=== PATIENT | female | born 1945 | race Caucasian/White ===

== ENCOUNTER 2016-09-15 19:59 | Inpatient (IN) | payer MEDICARE ==
[~2016-09-15] VITALS: Ht 165.1 cm; Wt 44.9 kg
[2016-09-16 01:30] VITALS: BP 117/62
[2016-09-16] MEDS ORDERED: ENALAPRIL MALEA10 MG ORAL (02:14)
[2016-09-16] MEDS ORDERED: FIORINAL WITH1 EACH PO (02:14)
[2016-09-16] MEDS ORDERED: Digoxin 0.125mg tab ORAL ONE (02:30)
[2016-09-16] MEDS ORDERED: Zolpidem 5mg tab ORAL PRN (03:30)
[2016-09-16] MEDS ORDERED: Norco 5mg/325mg tab ORAL PRN (03:30)
[2016-09-16 04:00] VITALS: BP 117/62
[2016-09-16] MEDS ORDERED: Enoxaparin 40mg Inj SUBQ ONE ×2 (04:00→08:00)
[2016-09-16 05:00] LABS: EOSINOPHILS % (AUTO) 0.2 % (0.0-3.0); LYMPHOCYTES % (AUTO) 15.4 % (20.0-45.0); MEAN CORPUSCULAR HEMOGLOBIN 32.6 PG (27.0-31.0); MEAN CORPUSCULAR HGB CONC 34.3 G/DL (32.0-36.0); MEAN CORPUSCULAR VOLUME 95 FL (80-99); MEAN PLATELET VOLUME 8.9 FL (6.5-10.1); MONOCYTES % (AUTO) 6.9 % (1.0-10.0); NEUTROPHILS % (AUTO) 76.5 % (45.0-75.0); PLATELET COUNT 140 K/UL (150-450); RED BLOOD COUNT 3.97 M/UL (4.20-5.40); RED CELL DISTRIBUTION WIDTH 10.6 % (11.6-14.8); WHITE BLOOD COUNT 4.1 K/UL (4.8-10.8)
[2016-09-16 06:47] LABS: TROPONIN I < 0.30 ng/mL (<=0.30)
[2016-09-16 07:34] LABS: ANION GAP 12 (5-15); CARBON DIOXIDE 21 mEQ/L (20-30); CHLORIDE 105 mEQ/L (98-107); CREATININE 0.4 mg/dL (0.5-0.9); GLOMERULAR FILTRATION RATE > 60 mL/min (>60); HEMOLYSIS 8; POTASSIUM 4.3 mEQ/L (3.4-4.9); SODIUM 138 mEQ/L (135-145)
[2016-09-16 08:07] LABS: ALANINE AMINOTRANSFERASE 10 U/L (3-33); ALBUMIN/GLOBULIN RATIO 1.6 (1.0-2.7); ANION GAP 12 (5-15); ASPARTATE AMINO TRANSFERASE 17 U/L (5-40); CALCIUM 8.9 mg/dL (8.6-10.2); CARBON DIOXIDE 21 mEQ/L (20-30); CHLORIDE 105 mEQ/L (98-107); CREATININE 0.5 mg/dL (0.5-0.9); GLOMERULAR FILTRATION RATE > 60 mL/min (>60); HEMOLYSIS 6; POTASSIUM 4.2 mEQ/L (3.4-4.9); SODIUM 138 mEQ/L (135-145); TOTAL PROTEIN 6.2 g/dL (6.6-8.7)
[2016-09-16 08:18] LABS: THYROID STIMULATING HORMONE 0.774 uIU/mL (0.300-4.500)
[2016-09-16 08:27] VITALS: BP_SYST 106; BP_SYST 97; BP_DIAS 60; BP_DIAS 64
[2016-09-16 08:50] LABS: PROTHROMBIN TIME 10.1 SEC (9.30-11.50)
[2016-09-16] MEDS ORDERED: Metoprolol Tartrate 50mg tab ORAL SCH (09:00)
[2016-09-16] MEDS ORDERED: Heparin 5000 units/ml inj SUBQ SCH (09:00)
[2016-09-16] MEDS: Metoprolol Tartrate 50mg tab ORAL SCH ×2 (09:00→18:36)
[2016-09-16] MEDS: Digoxin 0.125mg tab ORAL SCH (09:01)
[2016-09-16 10:31] LABS: TROPONIN I < 0.30 ng/mL (<=0.30)
--- NOTE | 2016-09-16 10:44 | History & Physical ---
History and Physical History & Physicial Dictated for Int Med-Dr Donahue no. [id number]. ADITI VELA Sep 16, 2016 10:44
[2016-09-16 11:47] VITALS: BP 119/70
--- NOTE | 2016-09-16 12:00 | History and Physical Report ---
DATE OF ADMISSION: 09/16/2016 CHIEF COMPLAINT: The patient is a 71-year-old white female, presents with chief complaint of "irregular heartbeat." HISTORY OF PRESENT ILLNESS: The patient states she was taking a nap this afternoon about 3 p.m. The patient awoke feeling that her heartbeat was "irregular." The patient has a history of irregular heartbeat, however, she has never been worked up for this. The patient initially presented to [facility] Emergency Room. The patient was found to be in atrial fibrillation with rapid ventricular rate in the 130s. The patient received metoprolol in the emergency room at [place]. The patient is transferred to [facility] for insurance purposes. The patient presents with a chief complaint of atrial fibrillation with rapid ventricular rate. REVIEW OF SYSTEMS: Constitutional: The patient denies weight loss or weight gain. The patient denies fevers or chills. HEENT: The patient denies ear or throat pain. The patient has headache. Cardiovascular: The patient denies chest pain. The patient complains of palpitations. Abdomen: The patient denies nausea, vomiting, diarrhea, or constipation. Genitourinary: The patient denies dysuria or increased frequency of urination. Neuromuscular: The patient denies seizures or generalized weakness. PAST MEDICAL HISTORY: Significant for: 1. Off and on atrial fibrillation for the past 30 years. The patient states this occurs approximately once per year. 2. Hypertension, however, the patient is not on any antihypertensive medication. 3. Thyroid nodule, status post needle biopsy, which was benign. PAST SURGICAL HISTORY: The patient denies. CURRENT MEDICATIONS: 1. Enalapril 10 mg one tablet p.o. p.r.n. systolic greater than 150 or diastolic greater than 100. 2. with codeine one tablet p.o. p.r.n. headache. ALLERGIES: Vicodin and Phenergan. SOCIAL HISTORY: The patient is and is retired. The patient denies tobacco or alcohol use. PHYSICAL EXAMINATION: VITAL SIGNS: Temperature 98.6, respirations 18, pulse 91 to 125, and blood pressure 117/62. GENERAL: The patient is well-developed, well-nourished, thin-appearing white female, in no apparent distress. HEENT: Eyes, pupils are equal and responsive to light and accommodation. Extraocular movements are intact. NECK: Supple without lymphadenopathy. CHEST: Lungs are clear to auscultation bilaterally without wheezes or rales. CARDIOVASCULAR: Irregular rhythm. Irregular rate. S1 and S2 are normal without murmurs, rubs, or gallops. ABDOMEN: Soft, nontender, and nondistended. Positive bowel sounds. No evidence of hepatosplenomegaly. Currently, no rebound or guarding noted. EXTREMITIES: Negative for clubbing, cyanosis, or edema. RECTAL/GENITAL: Refused. NEUROLOGIC: Cranial nerves II through XII are grossly intact. No focal deficits. Motor strength is 5/5 bilaterally. Deep tendon reflexes are 2+ bilaterally. LABORATORY DATA: Laboratory studies from [place] WBC 3.3, hemoglobin 14.4, hematocrit 41.6, and platelets 137,000. Sodium 133, potassium 4.3, chloride 102, CO2 23, BUN 18, creatinine 0.52, and glucose 133. BNP 75. Troponin less than 0.03. ASSESSMENT: This is a 71-year-old white female: 1. Atrial fibrillation with rapid ventricular rate. 2. Hypertension. 3. Migraine headaches. 4. History of thyroid nodule. TREATMENT: 1. Atrial fibrillation with rapid ventricular rate. A Cardiology consultation by Dr. John Nolasco. An echocardiogram is pending. Atrial fibrillation is relatively new. Would advise against heparin at this time as the patient has new onset atrial fibrillation. We will follow recommendation of Cardiology, Dr. Nolasco. 2. Hypertension. The patient has been placed on metoprolol for rate control. We will follow recommendations of Cardiology. 3. Migraine headaches. 4. History of thyroid nodule. Jerald Roper M.D. DR: HOMAR JOB#: [id number] CC:
--- NOTE | 2016-09-16 15:37 | Cardiology Report ---
APPROVED REPORT EXAM: Two-dimensional and M-mode echocardiogram with Doppler and color Doppler. INDICATION Atrial Fibrillation M-Mode DIMENSIONS IVSd0.7 (0.7-1.1cm)Left Atrium (MM)3.3 (1.6-4.0cm) LVDd3.5 (3.5-5.6cm)Aortic Root2.8 (2.0-3.7cm) PWd1.1 (0.7-1.1cm)Aortic Cusp Exc.1.6 (1.5-2.0cm) LVDs1.5 (2.5-4.0cm) PWs1.5 cm Normal left ventricular chamber size, systolic function and wall motion. Left ventricular ejection fraction estimated to be 55 %. No evidence of ventricular hypertrophy. No evidence of pericardial fat or effusion. All other cardiac chamber sizes are within normal limits. Focal aortic valve sclerosis with adequate cusp excursion. Thickened mitral valve leaflets with normal excursion. Mitral annulus and aortic root calcification. Normal pulmonic valve structure. Normal tricuspid valve structure. IVC dilated at 2.1 cm with physiologic collapse. A color flow and spectral Doppler study was performed and revealed: Mild aortic regurgitation. Trace mitral regurgitation. Left ventricular diastolic function could not be determined due to A-Fib. Mild to moderate tricuspid regurgitation. Tricuspid systolic velocities suggests peak right ventricular systolic pressure of 32 mmHg. Pulmonic regurgitation present.
[2016-09-16 15:43] VITALS: BP 116/64
--- NOTE | 2016-09-16 16:00 | Consultation ---
History of Present Illness General Date patient seen: Sep 16, 2016 Chief Complaint: palpitation Referring physician: Dr. Donahue Reason for Consultation: Inpatient management Present Illness HPI 71 year old female with pmhx of paroxysmal Afib, was taken to [facility] with CC of palpitation. She was found to be in rapid afib. after initial treatment, she was transferred to [facility] for further evaluation. Currently she is asymptomatic with heart rate at 80's. Allergies: Coded Allergies: ACETAMINOPHEN (Unverified Adverse Reaction, Mild, 09/16/16) HYDROCODONE (Unverified Adverse Reaction, Mild, 09/16/16) PROMETHAZINE (Unverified Adverse Reaction, Mild, 09/16/16) Medication History Scheduled PRN Codeine/Butalbital/Asa/Caffein (Fiorinal With Codeine #3 Cap), 1 EACH PO Q6HR PRN for For Headache, (Reported) Enalapril Maleate* (Enalapril Maleate*), 10 MG ORAL Q6HR PRN for Per rx protocol , (Reported) Patient History Healthcare decision maker Resuscitation status Full Code Advanced Directive on File Past Medical/Surgical History Past Medical/Surgical History: (1) Palpitations Review of Systems All Other Systems: negative except mentioned in HPI Physical Exam General Appearance: WD/WN Lines, tubes and drains: peripheral HEENT: normocephalic, atraumatic Neck: non-tender, normal alignment, supple, normal inspection Respiratory/Chest: chest wall non-tender, lungs clear Breasts: no masses Cardiovascular/Chest: normal peripheral pulses Abdomen: normal bowel sounds, non tender Extremities: normal range of motion, non-tender Last 24 Hour Vital Signs Date Time Temp Pulse Resp B/P Pulse Ox O2 Delivery O2 Flow Rate FiO2 09/16/16 15:43 97.3 82 18 116/64 98 Room Air 09/16/16 12:00 90 09/16/16 11:47 97.2 89 18 119/70 97 Room Air 09/16/16 09:01 113 09/16/16 09:00 113 106/64 09/16/16 08:27 97.0 116 18 106/64 96 Room Air 09/16/16 08:00 111 09/16/16 04:00 98.6 91 19 117/62 97 Room Air 09/16/16 04:00 78 09/16/16 01:38 125 09/16/16 01:30 98.6 91 18 117/62 97 Room Air Intake and Output 09/15/16 09/16/16 19:00 07:00 # Voids 11 Laboratory Tests Test 09/16/16 04:40 09/16/16 08:10 09/16/16 10:00 White Blood Count 4.1 K/UL (4.8-10.8) L Red Blood Count 3.97 M/UL (4.20-5.40) L Hemoglobin 12.9 G/DL (12.0-16.0) Hematocrit 37.7 % (37.0-47.0) Mean Corpuscular Volume 95 FL (80-99) Mean Corpuscular Hemoglobin 32.6 PG (27.0-31.0) H Mean Corpuscular Hemoglobin Concent 34.3 G/DL (32.0-36.0) Red Cell Distribution Width 10.6 % (11.6-14.8) L Platelet Count 140 K/UL (150-450) L Mean Platelet Volume 8.9 FL (6.5-10.1) Neutrophils (%) (Auto) 76.5 % (45.0-75.0) H Lymphocytes (%) (Auto) 15.4 % (20.0-45.0) L Monocytes (%) (Auto) 6.9 % (1.0-10.0) Eosinophils (%) (Auto) 0.2 % (0.0-3.0) Basophils (%) (Auto) 1.0 % (0.0-2.0) Sodium Level 138 mEQ/L (135-145) Potassium Level 4.2 mEQ/L (3.4-4.9) Chloride Level 105 mEQ/L (98-107) Carbon Dioxide Level 21 mEQ/L (20-30) Anion Gap 12 (5-15) Blood Urea Nitrogen 11 mg/dL (7-23) Creatinine 0.5 mg/dL (0.5-0.9) Estimat Glomerular Filtration Rate > 60 mL/min (>60) Glucose Level 102 mg/dL (74-106) Calcium Level 8.9 mg/dL (8.6-10.2) Magnesium Level 2.0 mg/dL (1.7-2.5) Total Bilirubin < 0.2 mg/dL (0.0-1.2) Aspartate Amino Transf (AST/SGOT) 17 U/L (5-40) Alanine Aminotransferase (ALT/SGPT) 10 U/L (3-33) Alkaline Phosphatase 126 U/L (35-104) H Troponin I < 0.30 ng/mL (<=0.30) < 0.30 ng/mL (<=0.30) Total Protein 6.2 g/dL (6.6-8.7) L Albumin 3.9 g/dL (3.5-5.2) Globulin 2.3 g/dL Albumin/Globulin Ratio 1.6 (1.0-2.7) Thyroid Stimulating Hormone (TSH) 0.774 uIU/mL (0.300-4.500) Digoxin Level Pending Prothrombin Time 10.1 SEC (9.30-11.50) Prothromb Time International Ratio 1.0 (0.9-1.1) Height (Feet): 5 Height (Inches): 5.00 Weight (Pounds): 99 Medications Current Medications Medications (Trade) Dose Ordered Sig/Carlos Route PRN Reason Start Time Stop Time Status Last Admin Dose Admin Acetaminophen (Tylenol) 650 mg Q6HR PRN ORAL Moderate Pain (Pain Scale 4-6) 09/16/16 03:30 10/16/16 03:29 Acetaminophen/ Hydrocodone Bitart ([place] 5/325) 1 tab Q6H PRN ORAL Severe Pain (Pain Scale 7-10) 09/16/16 03:30 09/23/16 03:29 Digoxin (Lanoxin) 0.125 mg DAILY ORAL 09/16/16 09:00 10/16/16 08:59 09/16/16 09:01 Enoxaparin Sodium (Lovenox) 40 mg Q12HR SUBQ 09/16/16 21:00 10/16/16 20:59 Metoprolol Tartrate (Lopressor) 50 mg BID ORAL 09/16/16 09:00 10/16/16 08:59 09/16/16 09:00 Ondansetron HCl (Zofran) 4 mg Q4HR PRN IVP Nausea & Vomiting 09/16/16 03:30 10/16/16 03:29 Zolpidem Tartrate (Ambien) 5 mg HSPRN PRN ORAL Insomnia 09/16/16 03:30 9/1/17 03:29 Assessment/Plan Problem List: (1) Palpitations ICD Codes: R00.2 - Palpitations SNOMED: 94880257, [id number] (2) Paroxysmal a-fib ICD Codes: I48.0 - Paroxysmal atrial fibrillation SNOMED: 422704018 (3) Chest pain ICD Codes: R07.9 - Chest pain, unspecified SNOMED: 91223410 Assessment/Plan digoxin, b alexandra anticoagulation Echo cardiology evaluation JENNIFER MUSA Sep 16, 2016 16:00
--- NOTE | 2016-09-16 16:10 | Cardiology Report ---
APPROVED REPORT EKG Measurement Heart [id number] Atrial fibrillation Nonspecific ST and T wave abnormality Abnormal ECG
[2016-09-16 16:47] LABS: TROPONIN I < 0.30 ng/mL (<=0.30)
--- NOTE | 2016-09-16 16:58 | Cardiac Electrophysiology PN ---
Subjective Subjective [id number]. CHADs Score 3. Need anticoagulation. Changed Lovenox to Xarelto 20 daily. Objective Last 24 Hour Vital Signs Date Time Temp Pulse Resp B/P Pulse Ox O2 Delivery O2 Flow Rate FiO2 09/16/16 15:43 97.3 82 18 116/64 98 Room Air 09/16/16 12:00 90 09/16/16 11:47 97.2 89 18 119/70 97 Room Air 09/16/16 09:01 113 09/16/16 09:00 113 106/64 09/16/16 08:27 97.0 116 18 106/64 96 Room Air 09/16/16 08:00 111 09/16/16 04:00 98.6 91 19 117/62 97 Room Air 09/16/16 04:00 78 09/16/16 01:38 125 09/16/16 01:30 98.6 91 18 117/62 97 Room Air Intake and Output 09/15/16 09/16/16 19:00 07:00 # Voids 11 Laboratory Tests Test 09/16/16 04:40 09/16/16 08:10 09/16/16 10:00 09/16/16 16:04 White Blood Count 4.1 K/UL (4.8-10.8) L Red Blood Count 3.97 M/UL (4.20-5.40) L Hemoglobin 12.9 G/DL (12.0-16.0) Hematocrit 37.7 % (37.0-47.0) Mean Corpuscular Volume 95 FL (80-99) Mean Corpuscular Hemoglobin 32.6 PG (27.0-31.0) H Mean Corpuscular Hemoglobin Concent 34.3 G/DL (32.0-36.0) Red Cell Distribution Width 10.6 % (11.6-14.8) L Platelet Count 140 K/UL (150-450) L Mean Platelet Volume 8.9 FL (6.5-10.1) Neutrophils (%) (Auto) 76.5 % (45.0-75.0) H Lymphocytes (%) (Auto) 15.4 % (20.0-45.0) L Monocytes (%) (Auto) 6.9 % (1.0-10.0) Eosinophils (%) (Auto) 0.2 % (0.0-3.0) Basophils (%) (Auto) 1.0 % (0.0-2.0) Sodium Level 138 mEQ/L (135-145) Potassium Level 4.2 mEQ/L (3.4-4.9) Chloride Level 105 mEQ/L (98-107) Carbon Dioxide Level 21 mEQ/L (20-30) Anion Gap 12 (5-15) Blood Urea Nitrogen 11 mg/dL (7-23) Creatinine 0.5 mg/dL (0.5-0.9) Estimat Glomerular Filtration Rate > 60 mL/min (>60) Glucose Level 102 mg/dL (74-106) Calcium Level 8.9 mg/dL (8.6-10.2) Magnesium Level 2.0 mg/dL (1.7-2.5) Total Bilirubin < 0.2 mg/dL (0.0-1.2) Aspartate Amino Transf (AST/SGOT) 17 U/L (5-40) Alanine Aminotransferase (ALT/SGPT) 10 U/L (3-33) Alkaline Phosphatase 126 U/L (35-104) H Troponin I < 0.30 ng/mL (<=0.30) < 0.30 ng/mL (<=0.30) < 0.30 ng/mL (<=0.30) Total Protein 6.2 g/dL (6.6-8.7) L Albumin 3.9 g/dL (3.5-5.2) Globulin 2.3 g/dL Albumin/Globulin Ratio 1.6 (1.0-2.7) Thyroid Stimulating Hormone (TSH) 0.774 uIU/mL (0.300-4.500) Digoxin Level Pending Prothrombin Time 10.1 SEC (9.30-11.50) Prothromb Time International Ratio 1.0 (0.9-1.1) ARETHA RENTERIA Sep 16, 2016 16:58
[2016-09-16 20:00] VITALS: BP 108/80
[2016-09-16] MEDS ORDERED: Enoxaparin 40mg Inj SUBQ SCH (21:00)
--- NOTE | 2016-09-16 22:30 | Consultation ---
DATE OF CONSULTATION: 09/16/2016 CARDIOLOGY CONSULTATION CONSULTING PHYSICIAN: John Nolasco M.D. REFERRING PHYSICIAN: Jamie Donahue M.D. REASON FOR CONSULTATION: Management of atrial fibrillation with rapid ventricular response. HISTORY OF PRESENT ILLNESS: The patient is a 71-year-old lady with history of palpitation, states that she was never told to have atrial fibrillation. The patient has never been taking anticoagulation. The patient states that she has history of atrial fibrillation for many years, but she was taking lisinopril in the past. The patient presented to the emergency room with palpitation and was found to be in atrial fibrillation with rapid ventricular response. The patient was evaluated at [facility] and then was transferred to [facility] for further evaluation and management. At the time of my evaluation, the patient is feeling better. Her EKG at [place] showed atrial fibrillation with rapid ventricular response, heart rate of 140 beats per minute with mild ST-T wave abnormalities. PAST MEDICAL HISTORY: 1. Palpitation. 2. History of hypertension. FAMILY HISTORY: Noncontributory. SOCIAL HISTORY: She lives at home. Does not smoke or drink alcohol. REVIEW OF SYSTEMS: Her review of systems was performed and was negative other than what was mentioned in the history of present illness. PHYSICAL EXAMINATION: VITAL SIGNS: Blood pressure is 116/64, pulse 82, respirations 18, and temperature 97.3 degrees. HEAD AND NECK: Showed no JVD. LUNGS: Clear. CARDIOVASCULAR: Shows regular S1 and S2 with no gallop or murmur. ABDOMEN: Soft and nontender. EXTREMITIES: No pitting edema. DIAGNOSTIC DATA: Her EKG showed atrial fibrillation with rapid ventricular response with heart rate 140. LABORATORY DATA: Labs showed white count 4, hemoglobin 12.9, hematocrit 37.2, and platelet count 140,000. Sodium 138, potassium is 4.3, BUN of 11, creatinine 0.5, and glucose of 102. Troponins are negative x3. Digoxin level is pending. INR is 1. ASSESSMENT AND PLAN: 1. Recurrent episodes of palpitation as well as clear documentation of atrial fibrillation with rapid ventricular response. Those palpitation episodes were likely also atrial fibrillation. Regardless of her age of more than 71 and her female gender and history of hypertension and CHADS2 score is 3, certainly needs to be on anticoagulation. I discussed with the patient risks and benefits and alternatives and she agrees and would like to be started. I will start the patient on Xarelto 20 mg daily and I will discontinue Lovenox for now. For rate control, continue the patient on metoprolol 50 mg b.i.d. and digoxin 0.125 mg daily. Unfortunately, we cannot electrically or chemically cardiovert the patient as the duration of atrial fibrillation is not clear. 2. Hypertension. Continue metoprolol 50 mg b.i.d. that will help with rate control and atrial fibrillation as well. Thank you very much Dr. Donahue for allowing me to participate in the care of this patient. Please do not hesitate to contact me for any questions regarding my evaluation. John Nolasco M.D. DR: SUNITHA JOB#: [id number] CC:
[2016-09-17] VITALS: BP 129/76
[2016-09-17 04:00] VITALS: BP 113/61
[2016-09-17 07:19] LABS: BASOPHILS % (AUTO) 1.3 % (0.0-2.0); EOSINOPHILS % (AUTO) 0.4 % (0.0-3.0); LYMPHOCYTES % (AUTO) 20.4 % (20.0-45.0); MEAN CORPUSCULAR HEMOGLOBIN 33.2 PG (27.0-31.0); MEAN CORPUSCULAR HGB CONC 34.4 G/DL (32.0-36.0); MEAN CORPUSCULAR VOLUME 97 FL (80-99); MONOCYTES % (AUTO) 9.2 % (1.0-10.0); NEUTROPHILS % (AUTO) 68.8 % (45.0-75.0); PLATELET COUNT 142 K/UL (150-450); RED BLOOD COUNT 3.84 M/UL (4.20-5.40); RED CELL DISTRIBUTION WIDTH 11.2 % (11.6-14.8); WHITE BLOOD COUNT 3.5 K/UL (4.8-10.8)
[2016-09-17 08:08] LABS: ANION GAP 10 (5-15); CALCIUM 8.8 mg/dL (8.6-10.2); CARBON DIOXIDE 24 mEQ/L (20-30); CHLORIDE 103 mEQ/L (98-107); CREATININE 0.4 mg/dL (0.5-0.9); GLOMERULAR FILTRATION RATE > 60 mL/min (>60); HEMOLYSIS 9; POTASSIUM 3.9 mEQ/L (3.4-4.9); SODIUM 137 mEQ/L (135-145)
[2016-09-17 08:25] VITALS: BP 148/70
[2016-09-17] MEDS: Metoprolol Tartrate 50mg tab ORAL SCH ×2 (09:34→17:39)
[2016-09-17] MEDS: Xarelto 10mg tab ORAL SCH (09:34)
[2016-09-17] MEDS: Digoxin 0.125mg tab ORAL SCH (09:34)
[2016-09-17 12:00] VITALS: BP 124/71
--- NOTE | 2016-09-17 14:23 | Pulmonology Progress Note ---
Assessment/Plan Problems: (1) Palpitations (2) Paroxysmal a-fib (3) Chest pain Assessment/Plan on Xarelto heart rate controlled dc planning when Ok with cardiology Subjective ROS Limited/Unobtainable: No Constitutional: Reports: no symptoms Respiratory: Reports: no symptoms Cardiovascular: Reports: no symptoms Gastrointestinal/Abdominal: Reports: no symptoms Allergies: Coded Allergies: ACETAMINOPHEN (Unverified Adverse Reaction, Mild, 09/16/16) HYDROCODONE (Unverified Adverse Reaction, Mild, 09/16/16) PROMETHAZINE (Unverified Adverse Reaction, Mild, 09/16/16) Objective Last 24 Hour Vital Signs Date Time Temp Pulse Resp B/P Pulse Ox O2 Delivery O2 Flow Rate FiO2 09/17/16 12:00 97.7 62 18 124/71 98 Room Air 09/17/16 09:34 75 148/70 09/17/16 09:34 75 09/17/16 08:25 97.0 70 18 148/70 99 Room Air 09/17/16 04:00 97.3 69 20 113/61 97 Room Air 09/17/16 04:00 61 09/17/16 00:00 83 09/17/16 00:00 97.9 63 20 129/76 98 Room Air 09/16/16 20:00 84 09/16/16 20:00 98.1 72 20 108/80 96 Room Air 09/16/16 18:36 111 116/64 09/16/16 16:00 100 09/16/16 15:43 97.3 82 18 116/64 98 Room Air Intake and Output 09/16/16 09/17/16 19:00 07:00 Intake Total 360 ml Balance 360 ml Intake Oral 360 ml # Voids 2 1 General Appearance: WD/WN HEENT: normocephalic, atraumatic Respiratory/Chest: chest wall non-tender, lungs clear Breasts: no masses Cardiovascular: normal rate Abdomen: normal bowel sounds, soft, non tender, no organomegaly Laboratory Tests 09/16/16 16:04: Troponin I < 0.30 09/17/16 05:40: White Blood Count 3.5L, Red Blood Count 3.84L, Hemoglobin 12.8, Hematocrit 37.1 , Mean Corpuscular Volume 97, Mean Corpuscular Hemoglobin 33.2H, Mean Corpuscular Hemoglobin Concent 34.4, Red Cell Distribution Width 11.2L, Platelet Count 142L, Mean Platelet Volume 8.0, Neutrophils (%) (Auto) 68.8, Lymphocytes (%) (Auto) 20.4, Monocytes (%) (Auto) 9.2, Eosinophils (%) (Auto) 0.4, Basophils (%) (Auto) 1.3, Sodium Level 137, Potassium Level 3.9, Chloride Level 103, Carbon Dioxide Level 24, Anion Gap 10, Blood Urea Nitrogen 8, Creatinine 0.4L, Estimat Glomerular Filtration Rate > 60, Glucose Level 90, Calcium Level 8.8, Pro-B-Type Natriuretic Peptide 2736H, Thyroid Stimulating Hormone (TSH) 1.260, Free Thyroxine 0.85L, Digoxin Level < 0.3L Current Medications Medications (Trade) Dose Ordered Sig/Carlos Route PRN Reason Start Time Stop Time Status Last Admin Dose Admin Acetaminophen (Tylenol) 650 mg Q6HR PRN ORAL Moderate Pain (Pain Scale 4-6) 09/16/16 03:30 10/16/16 03:29 Acetaminophen/ Hydrocodone Bitart ([place] 5/325) 1 tab Q6H PRN ORAL Severe Pain (Pain Scale 7-10) 09/16/16 03:30 09/23/16 03:29 Digoxin (Lanoxin) 0.125 mg DAILY ORAL 09/16/16 09:00 10/16/16 08:59 09/17/16 09:34 Metoprolol Tartrate (Lopressor) 50 mg BID ORAL 09/16/16 09:00 10/16/16 08:59 09/17/16 09:34 Ondansetron HCl (Zofran) 4 mg Q4HR PRN IVP Nausea & Vomiting 09/16/16 03:30 10/16/16 03:29 Rivaroxaban (Xarelto) 20 mg DAILY ORAL 09/17/16 09:00 10/17/16 08:59 09/17/16 09:34 Zolpidem Tartrate (Ambien) 5 mg HSPRN PRN ORAL Insomnia 09/16/16 03:30 10/16/16 03:29 JENNIFER MUSA Sep 17, 2016 14:23
[2016-09-17 16:07] VITALS: BP 120/58
--- NOTE | 2016-09-17 16:22 | Cardiac Electrophysiology PN ---
Assessment/Plan Assessment/Plan 1. Recurrent episodes of palpitation due to atrial fibrillation with rapid ventricular response. In view of her age of more than 71 and her female gender and history of hypertension and CHADS score is 3, certainly needs to be on anticoagulation. Continue Xarelto 20 mg daily and for rate control, continue metoprolol 50 mg b.i.d. and digoxin 0.125 mg daily. Unfortunately, we cannot electrically or chemically cardiovert the patient as the duration of atrial fibrillation is not clear. 2. Hypertension. Continue metoprolol 50 mg b.i.d. that will help with rate control and atrial fibrillation as well. CLYDE RN, Dr Roper and patients out side PCP Subjective Subjective Doing better. Rate controlled. No chest pain or SOB. Objective Last 24 Hour Vital Signs Date Time Temp Pulse Resp B/P Pulse Ox O2 Delivery O2 Flow Rate FiO2 09/17/16 16:07 97.5 60 18 120/58 97 Room Air 09/17/16 12:00 97.7 62 18 124/71 98 Room Air 09/17/16 09:34 75 148/70 09/17/16 09:34 75 09/17/16 08:25 97.0 70 18 148/70 99 Room Air 09/17/16 04:00 97.3 69 20 113/61 97 Room Air 09/17/16 04:00 61 09/17/16 00:00 83 09/17/16 00:00 97.9 63 20 129/76 98 Room Air 09/16/16 20:00 84 09/16/16 20:00 98.1 72 20 108/80 96 Room Air 09/16/16 18:36 111 116/64 Intake and Output 09/16/16 09/17/16 19:00 07:00 Intake Total 360 ml Balance 360 ml Intake Oral 360 ml # Voids 2 1 Laboratory Tests Test 09/17/16 05:40 White Blood Count 3.5 K/UL (4.8-10.8) L Red Blood Count 3.84 M/UL (4.20-5.40) L Hemoglobin 12.8 G/DL (12.0-16.0) Hematocrit 37.1 % (37.0-47.0) Mean Corpuscular Volume 97 FL (80-99) Mean Corpuscular Hemoglobin 33.2 PG (27.0-31.0) H Mean Corpuscular Hemoglobin Concent 34.4 G/DL (32.0-36.0) Red Cell Distribution Width 11.2 % (11.6-14.8) L Platelet Count 142 K/UL (150-450) L Mean Platelet Volume 8.0 FL (6.5-10.1) Neutrophils (%) (Auto) 68.8 % (45.0-75.0) Lymphocytes (%) (Auto) 20.4 % (20.0-45.0) Monocytes (%) (Auto) 9.2 % (1.0-10.0) Eosinophils (%) (Auto) 0.4 % (0.0-3.0) Basophils (%) (Auto) 1.3 % (0.0-2.0) Sodium Level 137 mEQ/L (135-145) Potassium Level 3.9 mEQ/L (3.4-4.9) Chloride Level 103 mEQ/L (98-107) Carbon Dioxide Level 24 mEQ/L (20-30) Anion Gap 10 (5-15) Blood Urea Nitrogen 8 mg/dL (7-23) Creatinine 0.4 mg/dL (0.5-0.9) L Estimat Glomerular Filtration Rate > 60 mL/min (>60) Glucose Level 90 mg/dL (74-106) Calcium Level 8.8 mg/dL (8.6-10.2) Pro-B-Type Natriuretic Peptide 2736 pg/mL (0-125) H Thyroid Stimulating Hormone (TSH) 1.260 uIU/mL (0.300-4.500) Free Thyroxine 0.85 ng/dL (0.86-1.85) L Digoxin Level < 0.3 ng/mL (0.5-2.0) L Objective HEAD AND NECK: Showed no JVD. LUNGS: Clear. CARDIOVASCULAR: Shows regular S1 and S2 with no gallop or murmur. ABDOMEN: Soft and nontender. EXTREMITIES: No pitting edema. ARETHA RENTERIA Sep 17, 2016 16:22
--- NOTE | 2016-09-17 17:40 | Internal Med Progress Note ---
Subjective Date of Service: Sep 17, 2016 Physician Name Aditi Vela Attending Physician Jamie Donahue MD Current Medications Medications (Trade) Dose Ordered Sig/Carlos Route PRN Reason Start Time Stop Time Status Last Admin Dose Admin Acetaminophen (Tylenol) 650 mg Q6HR PRN ORAL Moderate Pain (Pain Scale 4-6) 09/16/16 03:30 10/16/16 03:29 Acetaminophen/ Hydrocodone Bitart ([place] 5/325) 1 tab Q6H PRN ORAL Severe Pain (Pain Scale 7-10) 09/16/16 03:30 09/23/16 03:29 Digoxin (Lanoxin) 0.125 mg DAILY ORAL 09/16/16 09:00 10/16/16 08:59 09/17/16 09:34 Metoprolol Tartrate (Lopressor) 50 mg BID ORAL 09/16/16 09:00 10/16/16 08:59 09/17/16 09:34 Ondansetron HCl (Zofran) 4 mg Q4HR PRN IVP Nausea & Vomiting 09/16/16 03:30 10/16/16 03:29 Rivaroxaban (Xarelto) 20 mg DAILY ORAL 09/17/16 09:00 10/17/16 08:59 09/17/16 09:34 Zolpidem Tartrate (Ambien) 5 mg HSPRN PRN ORAL Insomnia 09/16/16 03:30 10/16/16 03:29 Allergies: Coded Allergies: ACETAMINOPHEN (Unverified Adverse Reaction, Mild, 09/16/16) HYDROCODONE (Unverified Adverse Reaction, Mild, 09/16/16) PROMETHAZINE (Unverified Adverse Reaction, Mild, 09/16/16) ROS Limited/Unobtainable: No Constitutional: Reports: no symptoms HEENT: Reports: no symptoms Cardiovascular: Reports: palpitations Respiratory: Reports: no symptoms Gastrointestinal/Abdominal: Reports: no symptoms Genitourinary: Reports: no symptoms Neurologic/Psychiatric: Reports: no symptoms Subjective 71 YO F admitted with atrial fibrillation with rapid ventricular rate. Cover for Int Bill-Dr Donahue. Objective Last Vital Signs Date Time Temp Pulse Resp B/P Pulse Ox O2 Delivery O2 Flow Rate FiO2 09/17/16 16:07 97.5 60 18 120/58 97 Room Air General Appearance: no apparent distress, alert, thin EENT: PERRL/EOMI, normal ENT inspection Neck: non-tender, normal alignment, supple Cardiovascular: normal peripheral pulses, normal rate, no gallop/murmur, no JVD , irregularly irregular Respiratory/Chest: chest wall non-tender, lungs clear, normal breath sounds, no respiratory distress, no accessory muscle use Abdomen: normal bowel sounds, non tender, soft, no organomegaly, no mass Extremities: normal range of motion Neurologic: radiology manager II-XII grossly normal, no motor/sensory deficits Laboratory Tests Test 09/17/16 05:40 White Blood Count 3.5 K/UL (4.8-10.8) L Red Blood Count 3.84 M/UL (4.20-5.40) L Hemoglobin 12.8 G/DL (12.0-16.0) Hematocrit 37.1 % (37.0-47.0) Mean Corpuscular Volume 97 FL (80-99) Mean Corpuscular Hemoglobin 33.2 PG (27.0-31.0) H Mean Corpuscular Hemoglobin Concent 34.4 G/DL (32.0-36.0) Red Cell Distribution Width 11.2 % (11.6-14.8) L Platelet Count 142 K/UL (150-450) L Mean Platelet Volume 8.0 FL (6.5-10.1) Neutrophils (%) (Auto) 68.8 % (45.0-75.0) Lymphocytes (%) (Auto) 20.4 % (20.0-45.0) Monocytes (%) (Auto) 9.2 % (1.0-10.0) Eosinophils (%) (Auto) 0.4 % (0.0-3.0) Basophils (%) (Auto) 1.3 % (0.0-2.0) Sodium Level 137 mEQ/L (135-145) Potassium Level 3.9 mEQ/L (3.4-4.9) Chloride Level 103 mEQ/L (98-107) Carbon Dioxide Level 24 mEQ/L (20-30) Anion Gap 10 (5-15) Blood Urea Nitrogen 8 mg/dL (7-23) Creatinine 0.4 mg/dL (0.5-0.9) L Estimat Glomerular Filtration Rate > 60 mL/min (>60) Glucose Level 90 mg/dL (74-106) Calcium Level 8.8 mg/dL (8.6-10.2) Pro-B-Type Natriuretic Peptide 2736 pg/mL (0-125) H Thyroid Stimulating Hormone (TSH) 1.260 uIU/mL (0.300-4.500) Free Thyroxine 0.85 ng/dL (0.86-1.85) L Digoxin Level < 0.3 ng/mL (0.5-2.0) L Intake and Output 09/16/16 09/17/16 19:00 07:00 Intake Total 360 ml Balance 360 ml Intake Oral 360 ml # Voids 2 1 Assessment/Plan Problem List: (1) Atrial fibrillation with rapid ventricular response Assessment & Plan: See cardiology note. Not a candidate for ablation. Better rate control with digoxin and metoprolol. Continue anticoagulation with xarelto (2) Hypertension Assessment & Plan: Cont metoprolol (3) Migraine (4) Thyroid nodule Status: progressing ADITI VELA Sep 17, 2016 17:40
[2016-09-17 20:00] VITALS: BP 120/68
[2016-09-18] VITALS: BP 130/65
[2016-09-18 04:11] VITALS: BP 129/63
[2016-09-18 06:45] LABS: MEAN CORPUSCULAR HEMOGLOBIN 32.9 PG (27.0-31.0); MEAN CORPUSCULAR HGB CONC 34.6 G/DL (32.0-36.0); MEAN CORPUSCULAR VOLUME 95 FL (80-99); MEAN PLATELET VOLUME 7.5 FL (6.5-10.1); PLATELET COUNT 138 K/UL (150-450); RED BLOOD COUNT 3.72 M/UL (4.20-5.40); RED CELL DISTRIBUTION WIDTH 10.6 % (11.6-14.8); WHITE BLOOD COUNT 3.4 K/UL (4.8-10.8)
[2016-09-18 07:06] LABS: ANION GAP 10 (5-15); CALCIUM 8.7 mg/dL (8.6-10.2); CARBON DIOXIDE 23 mEQ/L (20-30); CHLORIDE 101 mEQ/L (98-107); CREATININE 0.4 mg/dL (0.5-0.9); GLOMERULAR FILTRATION RATE > 60 mL/min (>60); HEMOLYSIS 8; POTASSIUM 3.7 mEQ/L (3.4-4.9); SODIUM 134 mEQ/L (135-145)
[2016-09-18 07:48] VITALS: BP 112/61
[2016-09-18 07:55] LABS: BAND NEUTROPHILS % (MANUAL) 0 % (0-8); BASOPHILS % (MANUAL) 1 % (0-2); EOSINOPHILS % (MANUAL) 0 % (0-3); LYMPHOCYTES % (MANUAL) 24 % (20-45); NEUTROPHILS % (MANUAL) 64 % (45-75); PLATELET ESTIMATE DECREASED; PLATELET MORPHOLOGY NORMAL; TOTAL CELLS COUNTED 100
[2016-09-18] MEDS: Xarelto 10mg tab ORAL SCH (08:35)
[2016-09-18] MEDS: Metoprolol Tartrate 50mg tab ORAL SCH (09:00)
[2016-09-18] MEDS: Digoxin 0.125mg tab ORAL SCH (09:00)
[2016-09-18 11:38] VITALS: BP 128/73
[2016-09-21] MEDS ORDERED: DIGOXIN0.125 MG/2 ORAL (12:04)
[2016-09-21] MEDS ORDERED: XARELTO10 MG ORAL (12:04)
[2016-09-21] MEDS ORDERED: METOPROLOL TART50 MG ORAL (12:04)
--- NOTE | 2016-09-21 12:09 | Discharge Summary ---
Discharge Summary Hospital Course Date of Admission Sep 16, 2016 at 01:00 Date of Discharge Sep 18, 2016 at 16:00 Admitting Diagnosis HPI Marycruz Macias is a 71 year old female who was admitted on Sep 16, 2016 at 01:00 for Palpitation,Chest Pain Hospital Course dc summary #[id number] Discharge Medications New Medications: Digoxin* (Digoxin*) 0.125 Mg/2.5 Ml Solution 0.125 MG ORAL DAILY, #30 ML 0 Refills Metoprolol Tartrate* (Metoprolol Tartrate*) 50 Mg Tablet 50 MG ORAL EVERY 12 HOURS, #60 TAB 0 Refills Rivaroxaban (Xarelto*) 10 Mg Tablet 20 MG ORAL DAILY, #30 TAB 0 Refills Discontinued Medications: Codeine/Butalbital/Asa/Caffein (Fiorinal With Codeine #3 Cap) 1 Each Capsule 1 EACH PO Q6HR PRN for For Headache, CAP Enalapril Maleate* (Enalapril Maleate*) 10 Mg Tablet 10 MG ORAL Q6HR PRN for Per rx protocol, TAB Discharge Condition Upon Discharge: stable Discharge Disposition Patient was discharged to Home () Discharge Diagnoses: Discharge Instructions Discharge Instructions Special Instructions I have been assigned to complete a D/C Summary on this account. I was not involved in the patient management Kiana Flores NP ([place]) Sep 21, 2016 12:09
--- NOTE | 2016-09-22 06:45 | Discharge Summary 2 SIG ---
DATE OF ADMISSION: 09/16/2016 DATE OF DISCHARGE: 09/18/2016 The patient is admitted under Dr. Donahue. REASON FOR ADMISSION: The patient is a 71-year-old female, who was initially brought to [facility] for recurrent episodes of palpitation. The patient has a prior history of paroxysmal atrial fibrillation. In the Emergency Department of [place], she was found to be in rapid atrial fibrillation. After stabilization, she was transferred to [facility] for further management. At that time, the patient was in atrial fibrillation on telemetry strip. Her heart rate was controlled at 80. ADMITTING DIAGNOSES: Include: 1. Atrial fibrillation with rapid ventricular response, recurrent episodes of palpitation. 2. Hypertension. HOSPITAL COURSE: The patient admitted to telemetry floor. Cardiology consult was requested. The patient started initially on anticoagulation with Lovenox to bridge with Coumadin. However, comb machine operator seen and evaluated the patient. Heart rate controlled with beta-alexandra and digoxin was achieved and continued. Anticoagulation changed to Xarelto. Lovenox was stopped. An echocardiogram revealed preserved ejection fraction of 55%. Per Cardiology, unable chemically or electronically cardiovert patient since not known duration of atrial fibrillation. Blood pressure was managed with beta-alexandra was stable. The patient was stable for discharge and follow up with primary medical doctor. The patient was counseled on bleeding precaution. The patient was stable for discharge. DISCHARGE DIAGNOSES: Include atrial fibrillation with rapid ventricular response, recurrent episodes of palpitation, hypertension. DISCHARGE INSTRUCTIONS: The patient discharged home. Follow up with primary doctor. DISCHARGE MEDICATIONS: See medication reconciliation list. Jamie Donahue M.D. I have been assigned to dictate discharge summary on this account and I was not involved in the patient's management. Kiana lowealexx N.P. DR: HARPREET JOB#: [id number] CC:
== END 2016-09-18 16:00 | disposition home or self-care (01) | DRG 310 ==
LOC: 2E 09-16 01:00
DX: I48.0 Paroxysmal atrial fibrillation (principal); I10 Essential (primary) hypertension; Z88.6 Allergy status to analgesic agent; Z88.8 Allergy status to other drugs, medicaments and biological substances; R00.2 Palpitations; R07.9 Chest pain, unspecified; E04.1 Nontoxic single thyroid nodule; G43.909 Migraine, unspecified, not intractable, without status migrainosus
CPT/HCPCS: 36415; 80048; 80053; 80162; 83735; 83880; 84439; 84443; 84484; 85007; 85025; 85610; 93005; 93306

== ENCOUNTER 2017-06-12 15:55 | Inpatient (IN) | payer MEDICARE ==
[~2017-06-12] VITALS: Ht 165.1 cm; Wt 43.1 kg
[~2017-06-12 15:55] MED LIST: DIGOXIN0.125 MG/2 ORAL; ENALAPRIL MALEA10 MG ORAL; FIORINAL WITH1 EACH PO; METOPROLOL TART50 MG ORAL; XARELTO10 MG ORAL
[2017-06-12 18:30] VITALS: BP 146/76
[2017-06-12] MEDS ORDERED: FIORINAL WITH1 EACH PO (18:43)
[2017-06-12 20:00] VITALS: BP 146/75
[2017-06-12 23:55] VITALS: BP 143/61
[2017-06-13] VITALS: BP 139/77
[2017-06-13 04:00] VITALS: BP 130/69
[2017-06-13 08:00] VITALS: BP 137/70
[2017-06-13 08:21] LABS: HEMATOCRIT 33.6 % (37.0-47.0); HEMOGLOBIN 12.4 G/DL (12.0-16.0); MEAN CORPUSCULAR VOLUME 92 FL (80-99); PLATELET COUNT 124 K/UL (150-450); RED BLOOD COUNT 3.66 M/UL (4.20-5.40); RED CELL DISTRIBUTION WIDTH 11.2 % (11.6-14.8)
[2017-06-13] MEDS: Digoxin 0.125mg tab ORAL SCH (08:59)
[2017-06-13] MEDS: Metoprolol Tartrate 50mg tab ORAL SCH ×3 (08:59→21:38)
[2017-06-13] MEDS: Xarelto 10mg tab ORAL SCH (08:59)
[2017-06-13 09:03] LABS: ALANINE AMINOTRANSFERASE 19 U/L (12-78); ALBUMIN 3.7 G/DL (3.4-5.0); ALBUMIN/GLOBULIN RATIO 1.1 (1.0-2.7); ALKALINE PHOSPHATASE 109 U/L (46-116); ANION GAP 9 mmol/L (5-15); ASPARTATE AMINO TRANSFERASE 22 U/L (15-37); BILIRUBIN,TOTAL 0.3 MG/DL (0.2-1.0); BLOOD UREA NITROGEN 7 mg/dL (7-18); CALCIUM 8.7 MG/DL (8.5-10.1); CARBON DIOXIDE 25 MMOL/L (21-32); CHLORIDE 103 MMOL/L (98-107); CREATININE 0.5 MG/DL (0.55-1.30); PHOSPHORUS 1.9 MG/DL (2.5-4.9); POTASSIUM 3.1 MMOL/L (3.5-5.1); SODIUM 137 MMOL/L (136-145)
--- NOTE | 2017-06-13 10:09 | History & Physical ---
History and Physical History & Physicial Jamie Donahue MD Jun 13, 2017 10:09
--- NOTE | 2017-06-13 11:56 | Diagnostic Imaging Report ---
Indication: Dyspnea Comparison: None A single view chest radiograph was obtained. Findings: No definite infiltrate or pulmonary vascular congestion identified. The heart is normal in size. The aorta is mildly enlarged consistent with atherosclerotic vascular disease. The bones are osteopenic. Impression: No acute disease
[2017-06-13 12:00] VITALS: BP 147/67
[2017-06-13] MEDS ORDERED: Potassium Phosphate 20 MM in NS 275 ML IV ONE (12:00)
--- NOTE | 2017-06-13 14:59 | Cardiac Electrophysiology PN ---
Subjective Subjective [id number] Objective Last 24 Hour Vital Signs Date Time Temp Pulse Resp B/P (MAP) Pulse Ox O2 Delivery O2 Flow Rate FiO2 06/13/17 12:48 64 147/67 06/13/17 12:00 97.7 64 18 147/67 99 Room Air 97.7 06/13/17 11:37 63 06/13/17 08:59 62 06/13/17 08:59 62 137/70 06/13/17 08:00 97.5 62 18 137/70 98 Room Air 97.5 06/13/17 07:24 81 06/13/17 04:00 97.2 70 20 130/69 100 Room Air 97.2 06/13/17 04:00 65 06/13/17 00:00 97.3 63 20 139/77 100 Room Air 97.3 06/13/17 00:00 69 06/12/17 20:00 97.7 86 20 146/75 97 Room Air 97.7 06/12/17 20:00 77 06/12/17 18:30 97.5 105 18 146/76 98 Room Air 97.5 Intake and Output 06/12/17 06/13/17 19:00 07:00 # Voids 2 Laboratory Tests Test 06/13/17 06:00 White Blood Count 3.0 K/UL (4.8-10.8) L Red Blood Count 3.66 M/UL (4.20-5.40) L Hemoglobin 12.4 G/DL (12.0-16.0) Hematocrit 33.6 % (37.0-47.0) L Mean Corpuscular Volume 92 FL (80-99) Mean Corpuscular Hemoglobin 33.9 PG (27.0-31.0) H Mean Corpuscular Hemoglobin Concent 36.9 G/DL (32.0-36.0) H Red Cell Distribution Width 11.2 % (11.6-14.8) L Platelet Count 124 K/UL (150-450) L Mean Platelet Volume 7.4 FL (6.5-10.1) Neutrophils (%) (Auto) % (45.0-75.0) Lymphocytes (%) (Auto) % (20.0-45.0) Monocytes (%) (Auto) % (1.0-10.0) Eosinophils (%) (Auto) % (0.0-3.0) Basophils (%) (Auto) % (0.0-2.0) Differential Total Cells Counted 100 Neutrophils % (Manual) 77 % (45-75) H Lymphocytes % (Manual) 15 % (20-45) L Monocytes % (Manual) 8 % (1-10) Eosinophils % (Manual) 0 % (0-3) Basophils % (Manual) 0 % (0-2) Band Neutrophils 0 % (0-8) Platelet Estimate Decreased L Platelet Morphology Normal Red Blood Cell Morphology Normal Sodium Level 137 MMOL/L (136-145) Potassium Level 3.1 MMOL/L (3.5-5.1) L Chloride Level 103 MMOL/L (98-107) Carbon Dioxide Level 25 MMOL/L (21-32) Anion Gap 9 mmol/L (5-15) Blood Urea Nitrogen 7 mg/dL (7-18) Creatinine 0.5 MG/DL (0.55-1.30) L Estimat Glomerular Filtration Rate mL/min (>60) Glucose Level 123 MG/DL (74-106) H Calcium Level 8.7 MG/DL (8.5-10.1) Phosphorus Level 1.9 MG/DL (2.5-4.9) L Magnesium Level 2.0 MG/DL (1.8-2.4) Total Bilirubin 0.3 MG/DL (0.2-1.0) Aspartate Amino Transf (AST/SGOT) 22 U/L (15-37) Alanine Aminotransferase (ALT/SGPT) 19 U/L (12-78) Alkaline Phosphatase 109 U/L (46-116) Troponin I 0.053 ng/mL (0.000-0.056) Total Protein 7.0 G/DL (6.4-8.2) Albumin 3.7 G/DL (3.4-5.0) Globulin 3.3 g/dL Albumin/Globulin Ratio 1.1 (1.0-2.7) Thyroid Stimulating Hormone (TSH) 1.156 uiU/mL (0.358-3.740) Digoxin Level 0.4 NG/ML (0.9-2.0) John Erwin MD Jun 13, 2017 14:59
[2017-06-13] MEDS ORDERED: Lexiscan 0.4mg/5ml syringe IV PRN (15:00)
[2017-06-13 16:00] VITALS: BP 152/73
[2017-06-13] MEDS ORDERED: NS 275ml ONE (16:20)
[2017-06-13] MEDS ORDERED: Tubing IV Secondary IV ONE (16:20)
--- NOTE | 2017-06-13 16:32 | Consultation ---
History of Present Illness General Date patient seen: Jun 13, 2017 Referring physician: DR Donahue Reason for Consultation: Inpatient management Present Illness HPI 72 year old female with hx of afib, was taken to [place] with CC of palpitation, after initial evaluation at [place] she was transferred to [place] for further care. She has been in sinus rhythm since admission. She had a similar episode a few month ago at [place]. Allergies: Coded Allergies: ACETAMINOPHEN (Unverified Adverse Reaction, Mild, 09/16/16) HYDROCODONE (Unverified Adverse Reaction, Mild, 09/16/16) PROMETHAZINE (Unverified Adverse Reaction, Mild, 09/16/16) Medication History Scheduled Digoxin* (Digoxin*), 0.125 MG ORAL DAILY Metoprolol Tartrate* (Metoprolol Tartrate*), 50 MG ORAL EVERY 12 HOURS Rivaroxaban (Xarelto*), 20 MG ORAL DAILY Scheduled PRN Codeine/Butalbital/Asa/Caffein (Fiorinal With Codeine #3 Cap), 1 EACH PO for migraine, (Reported) Patient History Healthcare decision maker N Resuscitation status Advanced Directive on File Past Medical/Surgical History Past Medical/Surgical History: (1) Paroxysmal a-fib (2) Migraine (3) Thyroid nodule Review of Systems Constitutional: Reports: no symptoms Eye: Reports: no symptoms ENT: Reports: no symptoms Respiratory: Reports: no symptoms Physical Exam General Appearance: cachetic Lines, tubes and drains: peripheral HEENT: normocephalic, atraumatic Neck: non-tender, normal alignment Respiratory/Chest: chest wall non-tender, lungs clear Breasts: no masses Cardiovascular/Chest: normal peripheral pulses Abdomen: normal bowel sounds Genitourinary/Rectal: normal genital exam Extremities: normal range of motion Last 24 Hour Vital Signs Date Time Temp Pulse Resp B/P (MAP) Pulse Ox O2 Delivery O2 Flow Rate FiO2 06/13/17 15:33 61 06/13/17 12:48 64 147/67 06/13/17 12:00 97.7 64 18 147/67 99 Room Air 97.7 06/13/17 11:37 63 06/13/17 08:59 62 06/13/17 08:59 62 137/70 06/13/17 08:00 97.5 62 18 137/70 98 Room Air 97.5 4/29/18 07:24 81 06/13/17 04:00 97.2 70 20 130/69 100 Room Air 97.2 06/13/17 04:00 65 06/13/17 00:00 97.3 63 20 139/77 100 Room Air 97.3 06/13/17 00:00 69 06/12/17 20:00 97.7 86 20 146/75 97 Room Air 97.7 06/12/17 20:00 77 06/12/17 18:30 97.5 105 18 146/76 98 Room Air 97.5 Intake and Output 06/12/17 06/13/17 19:00 07:00 # Voids 2 Laboratory Tests Test 06/13/17 06:00 White Blood Count 3.0 K/UL (4.8-10.8) L Red Blood Count 3.66 M/UL (4.20-5.40) L Hemoglobin 12.4 G/DL (12.0-16.0) Hematocrit 33.6 % (37.0-47.0) L Mean Corpuscular Volume 92 FL (80-99) Mean Corpuscular Hemoglobin 33.9 PG (27.0-31.0) H Mean Corpuscular Hemoglobin Concent 36.9 G/DL (32.0-36.0) H Red Cell Distribution Width 11.2 % (11.6-14.8) L Platelet Count 124 K/UL (150-450) L Mean Platelet Volume 7.4 FL (6.5-10.1) Neutrophils (%) (Auto) % (45.0-75.0) Lymphocytes (%) (Auto) % (20.0-45.0) Monocytes (%) (Auto) % (1.0-10.0) Eosinophils (%) (Auto) % (0.0-3.0) Basophils (%) (Auto) % (0.0-2.0) Differential Total Cells Counted 100 Neutrophils % (Manual) 77 % (45-75) H Lymphocytes % (Manual) 15 % (20-45) L Monocytes % (Manual) 8 % (1-10) Eosinophils % (Manual) 0 % (0-3) Basophils % (Manual) 0 % (0-2) Band Neutrophils 0 % (0-8) Platelet Estimate Decreased L Platelet Morphology Normal Red Blood Cell Morphology Normal Sodium Level 137 MMOL/L (136-145) Potassium Level 3.1 MMOL/L (3.5-5.1) L Chloride Level 103 MMOL/L (98-107) Carbon Dioxide Level 25 MMOL/L (21-32) Anion Gap 9 mmol/L (5-15) Blood Urea Nitrogen 7 mg/dL (7-18) Creatinine 0.5 MG/DL (0.55-1.30) L Estimat Glomerular Filtration Rate mL/min (>60) Glucose Level 123 MG/DL (74-106) H Calcium Level 8.7 MG/DL (8.5-10.1) Phosphorus Level 1.9 MG/DL (2.5-4.9) L Magnesium Level 2.0 MG/DL (1.8-2.4) Total Bilirubin 0.3 MG/DL (0.2-1.0) Aspartate Amino Transf (AST/SGOT) 22 U/L (15-37) Alanine Aminotransferase (ALT/SGPT) 19 U/L (12-78) Alkaline Phosphatase 109 U/L (46-116) Troponin I 0.053 ng/mL (0.000-0.056) Total Protein 7.0 G/DL (6.4-8.2) Albumin 3.7 G/DL (3.4-5.0) Globulin 3.3 g/dL Albumin/Globulin Ratio 1.1 (1.0-2.7) Thyroid Stimulating Hormone (TSH) 1.156 uiU/mL (0.358-3.740) Digoxin Level 0.4 NG/ML (0.9-2.0) L Height (Feet): 5 Height (Inches): 5.00 Weight (Pounds): 95 Medications Current Medications Medications (Trade) Dose Ordered Sig/Carlos Route PRN Reason Start Time Stop Time Status Last Admin Dose Admin Acetaminophen (Tylenol) 650 mg Q6H PRN ORAL Mild Pain/Temp > 100.5 06/12/17 19:00 07/12/17 18:59 Digoxin (Lanoxin) 0.125 mg DAILY ORAL 06/13/17 09:00 07/13/17 08:59 06/13/17 08:59 Metoprolol Tartrate (Lopressor) 50 mg Q12HR ORAL 06/13/17 21:00 07/13/17 20:59 Ondansetron HCl (Zofran) 4 mg Q4HR PRN IVP Nausea & Vomiting 06/12/17 19:00 07/12/17 18:59 Potassium Phosphate 20 mm/ Sodium Chloride 281.6667 ml @ 46.944 m... ONCE ONCE IV 06/13/17 12:00 06/13/17 17:59 06/13/17 12:47 Regadenoson (Lexiscan) 0.4 mg ONCE PRN IV STRESS TEST 06/13/17 15:00 06/14/17 23:59 Rivaroxaban (Xarelto) 20 mg DAILY ORAL 06/13/17 09:00 07/13/17 08:59 06/13/17 08:59 Assessment/Plan Problem List: (1) Atrial fibrillation with rapid ventricular response ICD Codes: I48.91 - Unspecified atrial fibrillation SNOMED: 276118976987442 (2) Thyroid nodule ICD Codes: E04.1 - Nontoxic single thyroid nodule SNOMED: 660122349 (3) Migraine ICD Codes: G43.909 - Migraine, unspecified, not intractable, without status migrainosus SNOMED: 97346123 Assessment/Plan telemetry monitoring echocardiogram serial troponin, ekg symptomatic treatment Priya Hanna MD Jun 13, 2017 16:32
[2017-06-13 20:00] VITALS: BP 135/76
--- NOTE | 2017-06-13 21:15 | History and Physical Report ---
DATE OF ADMISSION: 06/12/2017 CHIEF COMPLAINT: Palpitation. HISTORY OF PRESENT ILLNESS: This is a 72-year-old very delightful female with past medical history significant for atrial fibrillation as well as a thyroid nodule and hypertension, who was presented initially to [facility] with complaint about palpitation. The patient was recently admitted to [facility] on 09/16/2016 through 09/18/2016 with same presentation, subsequently was noted to have atrial fibrillation with rapid ventricular rate of 130. The patient was noted not taking digoxin any more or taken on and off. Shortly after initial evaluation at [facility], the patient was transferred to the [facility] for further evaluation and workup. The patient denies any chest pain or shortness of breath. Denies any hemoptysis or hematochezia. Complained about palpitation. Denies any double vision. PAST MEDICAL HISTORY AND PAST SURGICAL HISTORY: Significant for atrial fibrillation with rapid ventricular rate, hypertension, and thyroid nodule status post needle biopsy with benign findings. Denies any past surgical history. MEDICATIONS: Significant for metoprolol, digoxin, Xarelto, and Fiorinal as needed. ALLERGIES: Acetaminophen, hydrocodone, and promethazine. SOCIAL HISTORY: The patient denies any smoking, alcohol, or drugs. She is and retired. FAMILY HISTORY: Noncontributory. REVIEW OF SYSTEMS: Mostly as above. Denies any dysuria, frequency, hematuria, or hematochezia. Denies any hemoptysis or hematochezia. Denies any suicidal or homicidal ideation. Denies any double vision. Denies any loss of consciousness. Complained about palpitation. Denies any dizziness. Denies any seizure activity. Denies any bowel or urinary incontinence. PHYSICAL EXAMINATION: GENERAL: The patient is awake, responsive, in no acute distress. VITAL SIGNS: Upon arrival to [place], temperature 97.3 degrees, pulse of 63, respirations 20, and blood pressure 139/77. HEAD AND NECK: Pupils equal and reactive to light. Extraocular movements intact. Neck was supple. No JVD. LUNGS: Clear. No wheeze or rales. HEART: S1 and S2. Irregular. No murmur or gallop. ABDOMEN: Soft, nondistended, and nontender. Positive bowel sounds. EXTREMITIES: No cyanosis, clubbing, or edema. NEUROLOGIC: Cranial nerves II through XII grossly intact. Motor strength is 5/5 in all extremities. Gait is intact. Mood and affect is intact. RECTAL: Refused and deferred. GENITOURINARY: Refused and deferred. LABORATORY AND DIAGNOSTIC DATA: Laboratory from today is significant for WBC of 3.0, hemoglobin 12, hematocrit 33, and platelet is 124,000. Sodium 137, potassium 3.1, chloride 103, bicarbonate 25, BUN 7, creatinine 0.5 and glucose 123. Phosphate is 1.9. First troponin 0.053. TSH is 1.156. It was noted that echocardiogram on 10/12/2016 showed ejection fraction of 55%, no evidence of ventricular hypertrophy. The patient was still in atrial fibrillation and [id number] tricuspid regurgitation. ASSESSMENT: 1. Atrial fibrillation with rapid ventricular rate. 2. Hypertension. 3. Migraine headaches. 4. History of thyroid nodule, status post biopsy, benign. 5. Hypokalemia. PLAN: Admit the patient to telemetry. We will follow up with laboratory. Discussed case with Dr. John Nolasco from Cardiology to schedule electrophysiology. We will monitor laboratory closely. Potassium supplement. If the patient's status improved, consider discharge home to be followed up with primary doctor as an outpatient in the morning. Jamie Donahue M.D. DR: AYDIN JOB#: [id number] CC:
[2017-06-14] VITALS: BP 113/57
--- NOTE | 2017-06-14 00:45 | Consultation ---
DATE OF CONSULTATION: 06/13/2017 CARDIOLOGY CONSULTATION CONSULTING PHYSICIAN: John Nolasco M.D. REFERRING PHYSICIAN: Jamie Donahue M.D. REASON FOR CONSULTATION: Atrial fibrillation with rapid ventricular response. HISTORY OF PRESENT ILLNESS: The patient is a 72-year-old lady with history of paroxysmal atrial fibrillation for about a couple of years who presented to [facility] complaining of palpitation and shortness of breath similar to the previous episodes of atrial fibrillation. The patient's EKG showed ST depression inferolaterally similar to previous EKGs 2017. Troponin was negative. The patient is on digoxin and metoprolol as well as Xarelto. In the ER at [place], heart rate was 160s and received IV Cardizem and p.o. Cardizem. The patient was admitted to [facility] for further evaluation and management. PAST MEDICAL HISTORY: 1. Hypertension. 2. Paroxysmal atrial fibrillation. FAMILY HISTORY: Noncontributory. SOCIAL HISTORY: She lives at home. Does not smoke or drink alcohol. REVIEW OF SYSTEMS: Review of systems was performed and was negative other than what was mentioned in the history of present illness. PHYSICAL EXAMINATION: VITAL SIGNS: Blood pressure of 147/67, pulse 64, respirations 18, and she is afebrile. HEAD AND NECK: No JVD or carotid bruits. LUNGS: Clear. CARDIOVASCULAR: Regular S1 and S2 with no gallop or murmur. ABDOMEN: Soft and nontender. EXTREMITIES: No pitting edema. LABORATORY AND DIAGNOSTIC DATA: Labs show white count of , hemoglobin 11.4, hematocrit 33.6, and platelet count 124. Sodium 137, potassium 3.1, BUN 7, creatinine 0.5, and glucose of 123. Troponin is negative. D-dimer is 0.4. ASSESSMENT AND PLAN: Paroxysmal atrial fibrillation with rapid ventricular response. The patient is back on digoxin 0.125 mg daily and Lopressor 50 mg t.i.d. as well as Xarelto 20 mg daily. The patient already converted to sinus rhythm. We will get an echocardiogram to evaluate for ejection fraction and wall motion abnormality. In view of the patient's recurrent episodes, I will start the patient on amiodarone 200 mg daily to decrease the frequency of atrial fibrillation. An ischemic evaluation should also be considered in view of inferolateral ST-T wave abnormalities on her EKG and we will order for tomorrow. Thank you very much, Dr. Donahue, for allowing me to participate in the care of this patient. Please do not hesitate to contact me for any questions regarding my evaluation. John Nolasco M.D. DR: BERTHA JOB#: [id number] CC:
[2017-06-14 04:00] VITALS: BP 131/63
[2017-06-14 08:00] VITALS: BP 121/71
[2017-06-14] MEDS: Digoxin 0.125mg tab ORAL SCH (08:34)
[2017-06-14] MEDS: Metoprolol Tartrate 50mg tab ORAL SCH ×2 (08:34→20:43)
[2017-06-14] MEDS: Xarelto 10mg tab ORAL SCH (09:09)
--- NOTE | 2017-06-14 10:52 | Internal Med Progress Note ---
Subjective Date of Service: Jun 14, 2017 Physician Name Jerald Vela Attending Physician Jamie Donahue MD Current Medications Medications (Trade) Dose Ordered Sig/Carlos Route PRN Reason Start Time Stop Time Status Last Admin Dose Admin Acetaminophen (Tylenol) 650 mg Q6H PRN ORAL Mild Pain/Temp > 100.5 06/12/17 19:00 07/12/17 18:59 Digoxin (Lanoxin) 0.125 mg DAILY ORAL 06/13/17 09:00 07/13/17 08:59 06/13/17 08:59 Metoprolol Tartrate (Lopressor) 50 mg Q12HR ORAL 06/13/17 21:00 07/13/17 20:59 06/13/17 21:38 Ondansetron HCl (Zofran) 4 mg Q4HR PRN IVP Nausea & Vomiting 06/12/17 19:00 07/12/17 18:59 Regadenoson (Lexiscan) 0.4 mg ONCE PRN IV STRESS TEST 06/13/17 15:00 06/14/17 23:59 Rivaroxaban (Xarelto) 20 mg DAILY ORAL 06/13/17 09:00 07/13/17 08:59 06/14/17 09:09 Allergies: Coded Allergies: ACETAMINOPHEN (Unverified Adverse Reaction, Mild, 09/16/16) HYDROCODONE (Unverified Adverse Reaction, Mild, 09/16/16) PROMETHAZINE (Unverified Adverse Reaction, Mild, 09/16/16) ROS Limited/Unobtainable: No Constitutional: Reports: no symptoms HEENT: Reports: no symptoms Cardiovascular: Reports: palpitations Respiratory: Reports: no symptoms Gastrointestinal/Abdominal: Reports: no symptoms Neurologic/Psychiatric: Reports: no symptoms Subjective 72 YO F admitted with atrial fibrillation with rapid ventricular rate. Cover for Int Med - Dr Donahue Objective Last Vital Signs Date Time Temp Pulse Resp B/P (MAP) Pulse Ox O2 Delivery O2 Flow Rate FiO2 06/14/17 08:34 58 121/71 06/14/17 08:00 97.2 20 96 Room Air 97.2 General Appearance: WD/WN, no apparent distress, alert EENT: PERRL/EOMI, normal ENT inspection, TMs normal Neck: non-tender, normal alignment, supple, normal inspection Cardiovascular: normal peripheral pulses, normal rate, regular rhythm, no gallop/murmur, no JVD Respiratory/Chest: chest wall non-tender, lungs clear, normal breath sounds, no respiratory distress, no accessory muscle use Abdomen: normal bowel sounds, non tender, soft, no organomegaly, no mass Extremities: normal range of motion, non-tender 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 On digoxin per cardiology-see note. ?start amiodarone? (2) Hypertension Assessment & Plan: Continue metoprolol per cardiology (3) Thyroid nodule Assessment & Plan: Normal TSH; Previous biopsy=benign. (4) Migraine (5) Palpitations Status: progressing JERALD VELA Jun 14, 2017 10:52
--- NOTE | 2017-06-14 11:00 | Cardiology Report ---
APPROVED REPORT EXAM: Two-dimensional and M-mode echocardiogram with Doppler and color Doppler. INDICATION Atrial Fibrillation M-Mode DIMENSIONS IVSd0.9 (0.7-1.1cm)Left Atrium (MM)2.6 (1.6-4.0cm) LVDd3.8 (3.5-5.6cm)Aortic Root2.9 (2.0-3.7cm) PWd0.9 (0.7-1.1cm)Aortic Cusp Exc.1.7 (1.5-2.0cm) LVDs2.0 (2.5-4.0cm) PWs1.3 cm Normal left ventricular chamber size, systolic function and wall motion. Left ventricular ejection fraction estimated to be 60 %. No evidence of left ventricular hypertrophy. No evidence of pericardial effusion. All other cardiac chamber sizes are within normal limits. Focal aortic valve sclerosis with adequate cusp excursion. Thickened mitral valve leaflets with normal excursion. Mitral annulus and aortic root calcification. Pulmonic valve not well visualized. Normal tricuspid valve structure. IVC measures at 1.8 cm with physiological collapse. A color flow and spectral Doppler study was performed and revealed: Mild aortic insufficiency. Trace mitral regurgitation. Mitral diastolic velocities suggest mild left ventricular diastolic dysfunction (Grade I). Mild to moderate tricuspid regurgitation. Tricuspid systolic velocities suggests peak right ventricular systolic pressure of 37 mmHg, consistent with mild pulmonary hypertension. No pulmonic regurgitation present.
--- NOTE | 2017-06-14 11:01 | Cardiac Electrophysiology PN ---
Assessment/Plan Assessment/Plan 1. Paroxysmal atrial fibrillation with rapid ventricular response. Continue digoxin 0.125 mg daily and Lopressor 50 mg bid and Xarelto 20 mg daily. The patient already converted to sinus rhythm. Echocardiogram showed Ef 60% 2. Inferolateral ST-T wave abnormalities. Stress test rescheduled for tomorrow as she wasn't feeling well today. 3. HTN On Lopressor 50 bid Subjective Subjective Remained in SR. Refused stress test today as was not feeling well. Reschedule for tomorrow Objective Last 24 Hour Vital Signs Date Time Temp Pulse Resp B/P (MAP) Pulse Ox O2 Delivery O2 Flow Rate FiO2 06/14/17 08:34 58 121/71 06/14/17 08:34 58 06/14/17 08:00 59 06/14/17 08:00 97.2 58 20 121/71 96 Room Air 97.2 06/14/17 04:00 55 06/14/17 04:00 97.0 58 20 131/63 96 Room Air 97.0 06/14/17 00:00 51 06/14/17 00:00 97.9 59 20 113/57 96 Room Air 97.9 06/13/17 21:38 58 135/76 06/13/17 20:00 57 06/13/17 20:00 97.4 58 20 135/76 97 Room Air 97.4 06/13/17 16:00 97.3 58 18 152/73 99 Room Air 97.3 06/13/17 15:33 61 06/13/17 12:48 64 147/67 06/13/17 12:00 97.7 64 18 147/67 99 Room Air 97.7 06/13/17 11:37 63 Intake and Output 06/13/17 06/14/17 19:00 07:00 Intake Total 720 ml Balance 720 ml Intake Oral 720 ml # Voids 2 1 # Bowel Movements 1 Objective HEAD AND NECK: No JVD or carotid bruits. LUNGS: Clear. CARDIOVASCULAR: Regular S1 and S2 with no gallop or murmur. ABDOMEN: Soft and nontender. EXTREMITIES: No pitting edema. John Nolasco MD Jun 14, 2017 11:01
[2017-06-14 11:07] LABS: BASOPHILS % (AUTO) 1.1 % (0.0-2.0); EOSINOPHILS % (AUTO) 0.1 % (0.0-3.0); HEMATOCRIT 37.6 % (37.0-47.0); HEMOGLOBIN 14.1 G/DL (12.0-16.0); LYMPHOCYTES % (AUTO) 8.8 % (20.0-45.0); MEAN CORPUSCULAR VOLUME 91 FL (80-99); MONOCYTES % (AUTO) 5.5 % (1.0-10.0); NEUTROPHILS % (AUTO) 84.4 % (45.0-75.0); PLATELET COUNT 138 K/UL (150-450); RED BLOOD COUNT 4.13 M/UL (4.20-5.40); RED CELL DISTRIBUTION WIDTH 11.3 % (11.6-14.8); WHITE BLOOD COUNT 5.6 K/UL (4.8-10.8)
[2017-06-14 11:31] LABS: ALANINE AMINOTRANSFERASE 22 U/L (12-78); ALBUMIN 4.3 G/DL (3.4-5.0); ALBUMIN/GLOBULIN RATIO 1.3 (1.0-2.7); ALKALINE PHOSPHATASE 135 U/L (46-116); ANION GAP 10 mmol/L (5-15); ASPARTATE AMINO TRANSFERASE 22 U/L (15-37); BILIRUBIN,TOTAL 0.4 MG/DL (0.2-1.0); BLOOD UREA NITROGEN 8 mg/dL (7-18); CALCIUM 8.9 MG/DL (8.5-10.1); CARBON DIOXIDE 23 MMOL/L (21-32); CHLORIDE 101 MMOL/L (98-107); CREATININE 0.5 MG/DL (0.55-1.30); POTASSIUM 4.1 MMOL/L (3.5-5.1); SODIUM 134 MMOL/L (136-145)
[2017-06-14 11:39] LABS: ANION GAP 9 mmol/L (5-15); BLOOD UREA NITROGEN 8 mg/dL (7-18); CALCIUM 8.8 MG/DL (8.5-10.1); CARBON DIOXIDE 22 MMOL/L (21-32); CHLORIDE 101 MMOL/L (98-107); CREATININE 0.5 MG/DL (0.55-1.30); SODIUM 132 MMOL/L (136-145)
[2017-06-14 11:50] LABS: PHOSPHORUS 2.7 MG/DL (2.5-4.9)
[2017-06-14 12:00] VITALS: BP 143/76
--- NOTE | 2017-06-14 12:02 | Pulmonology Progress Note ---
Assessment/Plan Problems: (1) Atrial fibrillation with rapid ventricular response (2) Thyroid nodule (3) Migraine Assessment/Plan stress test scheduled for am all noted troponin all negative echo reviewed, EF 60% symptomatic treatment Subjective ROS Limited/Unobtainable: No Interval Events: worried about her low weight Constitutional: Reports: no symptoms HEENT: Repors: no symptoms Respiratory: Reports: no symptoms Allergies: Coded Allergies: ACETAMINOPHEN (Unverified Adverse Reaction, Mild, 09/16/16) HYDROCODONE (Unverified Adverse Reaction, Mild, 09/16/16) PROMETHAZINE (Unverified Adverse Reaction, Mild, 09/16/16) Objective Last 24 Hour Vital Signs Date Time Temp Pulse Resp B/P (MAP) Pulse Ox O2 Delivery O2 Flow Rate FiO2 06/14/17 08:34 58 121/71 06/14/17 08:34 58 06/14/17 08:00 59 06/14/17 08:00 97.2 58 20 121/71 96 Room Air 97.2 06/14/17 04:00 55 06/14/17 04:00 97.0 58 20 131/63 96 Room Air 97.0 06/14/17 00:00 51 06/14/17 00:00 97.9 59 20 113/57 96 Room Air 97.9 06/13/17 21:38 58 135/76 06/13/17 20:00 57 06/13/17 20:00 97.4 58 20 135/76 97 Room Air 97.4 06/13/17 16:00 97.3 58 18 152/73 99 Room Air 97.3 06/13/17 15:33 61 06/13/17 12:48 64 147/67 06/13/17 12:00 97.7 64 18 147/67 99 Room Air 97.7 Intake and Output 06/13/17 06/14/17 19:00 07:00 Intake Total 720 ml Balance 720 ml Intake Oral 720 ml # Voids 2 1 # Bowel Movements 1 General Appearance: WD/WN HEENT: normocephalic, atraumatic Respiratory/Chest: chest wall non-tender, lungs clear, normal breath sounds Cardiovascular: normal peripheral pulses, normal rate Abdomen: normal bowel sounds, soft, non tender Genitourinary: normal external genitalia Extremities: no cyanosis 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 Laboratory Tests 06/14/17 10:27: White Blood Count 5.6#, Red Blood Count 4.13L, Hemoglobin 14.1, Hematocrit 37.6 , Mean Corpuscular Volume 91, Mean Corpuscular Hemoglobin 34.2H, Mean Corpuscular Hemoglobin Concent 37.6H, Red Cell Distribution Width 11.3L, Platelet Count 138L, Mean Platelet Volume 7.8, Neutrophils (%) (Auto) 84.4H, Lymphocytes (%) (Auto) 8.8L, Monocytes (%) (Auto) 5.5, Eosinophils (%) (Auto) 0.1, Basophils (%) (Auto) 1.1, Sodium Level 134L, Potassium Level 4.1, Chloride Level 101, Carbon Dioxide Level 23, Anion Gap 10, Blood Urea Nitrogen 8, Creatinine 0.5L, Estimat Glomerular Filtration Rate , Glucose Level 126H, Calcium Level 8.9, Phosphorus Level 2.7, Magnesium Level 1.9, Total Bilirubin 0.4, Aspartate Amino Transf (AST/SGOT) 22, Alanine Aminotransferase (ALT/SGPT) 22, Alkaline Phosphatase 135H, Troponin I 0.006, Total Protein 7.6, Albumin 4.3 , Globulin 3.3, Albumin/Globulin Ratio 1.3, Thyroid Stimulating Hormone (TSH) 0.655, Free Thyroxine 0.86 Current Medications Medications (Trade) Dose Ordered Sig/Carlos Route PRN Reason Start Time Stop Time Status Last Admin Dose Admin Acetaminophen (Tylenol) 650 mg Q6H PRN ORAL Mild Pain/Temp > 100.5 06/12/17 19:00 07/12/17 18:59 Digoxin (Lanoxin) 0.125 mg DAILY ORAL 06/13/17 09:00 07/13/17 08:59 06/13/17 08:59 Metoprolol Tartrate (Lopressor) 50 mg Q12HR ORAL 06/13/17 21:00 07/13/17 20:59 06/13/17 21:38 Ondansetron HCl (Zofran) 4 mg Q4HR PRN IVP Nausea & Vomiting 06/12/17 19:00 07/12/17 18:59 Regadenoson (Lexiscan) 0.4 mg ONCE PRN IV STRESS TEST 06/13/17 15:00 06/14/17 23:59 Rivaroxaban (Xarelto) 20 mg DAILY ORAL 06/13/17 09:00 07/13/17 08:59 06/14/17 09:09 Priya Hanna MD Jun 14, 2017 12:02
--- NOTE | 2017-06-14 15:12 | General Progress Note ---
Subjective Date patient seen: Jun 14, 2017 Allergies: Coded Allergies: ACETAMINOPHEN (Unverified Adverse Reaction, Mild, 09/16/16) HYDROCODONE (Unverified Adverse Reaction, Mild, 09/16/16) PROMETHAZINE (Unverified Adverse Reaction, Mild, 09/16/16) Objective Last 24 Hour Vital Signs Date Time Temp Pulse Resp B/P (MAP) Pulse Ox O2 Delivery O2 Flow Rate FiO2 06/14/17 12:00 97.5 68 20 143/76 96 Room Air 97.5 06/14/17 12:00 50 06/14/17 08:34 58 121/71 06/14/17 08:34 58 06/14/17 08:00 59 06/14/17 08:00 97.2 58 20 121/71 96 Room Air 97.2 06/14/17 04:00 55 06/14/17 04:00 97.0 58 20 131/63 96 Room Air 97.0 06/14/17 00:00 51 06/14/17 00:00 97.9 59 20 113/57 96 Room Air 97.9 06/13/17 21:38 58 135/76 06/13/17 20:00 57 06/13/17 20:00 97.4 58 20 135/76 97 Room Air 97.4 06/13/17 16:00 97.3 58 18 152/73 99 Room Air 97.3 06/13/17 15:33 61 Intake and Output 06/13/17 06/14/17 19:00 07:00 Intake Total 720 ml Balance 720 ml Intake Oral 720 ml # Voids 2 1 # Bowel Movements 1 Laboratory Tests 06/14/17 10:27: White Blood Count 5.6#, Red Blood Count 4.13L, Hemoglobin 14.1, Hematocrit 37.6 , Mean Corpuscular Volume 91, Mean Corpuscular Hemoglobin 34.2H, Mean Corpuscular Hemoglobin Concent 37.6H, Red Cell Distribution Width 11.3L, Platelet Count 138L, Mean Platelet Volume 7.8, Neutrophils (%) (Auto) 84.4H, Lymphocytes (%) (Auto) 8.8L, Monocytes (%) (Auto) 5.5, Eosinophils (%) (Auto) 0.1, Basophils (%) (Auto) 1.1, Sodium Level 134L, Potassium Level 4.1, Chloride Level 101, Carbon Dioxide Level 23, Anion Gap 10, Blood Urea Nitrogen 8, Creatinine 0.5L, Estimat Glomerular Filtration Rate , Glucose Level 126H, Calcium Level 8.9, Phosphorus Level 2.7, Magnesium Level 1.9, Total Bilirubin 0.4, Aspartate Amino Transf (AST/SGOT) 22, Alanine Aminotransferase (ALT/SGPT) 22, Alkaline Phosphatase 135H, Troponin I 0.006, Total Protein 7.6, Albumin 4.3 , Globulin 3.3, Albumin/Globulin Ratio 1.3, Thyroid Stimulating Hormone (TSH) 0.655, Free Thyroxine 0.86 Height (Feet): 5 Height (Inches): 5.00 Weight (Pounds): 95 Nubia Walsh M.D. Jun 14, 2017 15:12
[2017-06-14] MEDS ORDERED: LORazepam 1mg tab ORAL PRN (15:15)
[2017-06-14 16:00] VITALS: BP 137/78
--- NOTE | 2017-06-14 18:30 | Consultation ---
DATE OF CONSULTATION: 06/13/2017 CONSULTING PHYSICIAN: Nubia Walsh M.D. HISTORY OF PRESENT ILLNESS: The patient is a 72-year-old female with a history of anxiety disorder, atrial fibrillation, thyroid nodules, hypertension who has been admitted for medical stabilization. . Psychiatry was consulted. During the evaluation, the patient has mild anxiety, fatigue, at times insomnia. No behavior issues. Denies any depressive or manic symptoms. No psychotic behaviors. PAST PSYCHIATRIC HISTORY: History of anxiety disorder. PAST MEDICAL HISTORY: Significant for atrial fibrillation, hypertension and thyroid nodule. ALLERGIES: Acetaminophen, hydrocodone and promethazine. SUBSTANCE ABUSE HISTORY: No known history of illicit drug use or alcohol. MENTAL STATUS EXAMINATION: The patient is alert and oriented times self, place, and situation. Mood is anxious. Affect is constricted, congruent with mood. Thought process is concrete. Thought content, no suicidal or homicidal ideations. PLAN: 1. The patient will be started on Ativan p.r.n. 2. Provide the patient with supportive therapy and reality orientation. Nubia Walsh M.D. DR: SARAH JOB#: [id number] CC:
[2017-06-14 20:00] VITALS: BP 153/72
[2017-06-15] VITALS: BP 152/76
[2017-06-15 04:00] VITALS: BP 138/70
[2017-06-15 08:00] VITALS: BP 137/71
[2017-06-15] MEDS: Digoxin 0.125mg tab ORAL SCH (08:38)
[2017-06-15] MEDS: Metoprolol Tartrate 50mg tab ORAL SCH ×2 (08:39→20:56)
[2017-06-15] MEDS: Xarelto 10mg tab ORAL SCH (08:48)
[2017-06-15 08:57] LABS: BASOPHILS % (AUTO) 0.7 % (0.0-2.0); EOSINOPHILS % (AUTO) 0.1 % (0.0-3.0); HEMATOCRIT 37.7 % (37.0-47.0); HEMOGLOBIN 13.9 G/DL (12.0-16.0); LYMPHOCYTES % (AUTO) 8.5 % (20.0-45.0); MEAN CORPUSCULAR VOLUME 91 FL (80-99); MONOCYTES % (AUTO) 8.1 % (1.0-10.0); NEUTROPHILS % (AUTO) 82.6 % (45.0-75.0); PLATELET COUNT 167 K/UL (150-450); RED BLOOD COUNT 4.13 M/UL (4.20-5.40); RED CELL DISTRIBUTION WIDTH 11.3 % (11.6-14.8); WHITE BLOOD COUNT 6.1 K/UL (4.8-10.8)
[2017-06-15 09:38] LABS: ANION GAP 10 mmol/L (5-15); BLOOD UREA NITROGEN 11 mg/dL (7-18); CALCIUM 8.5 MG/DL (8.5-10.1); CARBON DIOXIDE 20 MMOL/L (21-32); CHLORIDE 103 MMOL/L (98-107); CREATININE 0.4 MG/DL (0.55-1.30); POTASSIUM 4.1 MMOL/L (3.5-5.1); SODIUM 133 MMOL/L (136-145)
[2017-06-15 12:12] VITALS: BP 125/57
--- NOTE | 2017-06-15 12:13 | Pulmonology Progress Note ---
Assessment/Plan Problems: (1) Atrial fibrillation with rapid ventricular response (2) Thyroid nodule (3) Migraine Assessment/Plan no new complains stress test scheduled for today all noted troponin all negative echo reviewed, EF 60% symptomatic treatment Subjective ROS Limited/Unobtainable: No Constitutional: Reports: no symptoms HEENT: Repors: no symptoms Respiratory: Reports: no symptoms Allergies: Coded Allergies: ACETAMINOPHEN (Unverified Adverse Reaction, Mild, 09/16/16) HYDROCODONE (Unverified Adverse Reaction, Mild, 09/16/16) PROMETHAZINE (Unverified Adverse Reaction, Mild, 09/16/16) Objective Last 24 Hour Vital Signs Date Time Temp Pulse Resp B/P (MAP) Pulse Ox O2 Delivery O2 Flow Rate FiO2 06/15/17 08:39 57 138/70 06/15/17 08:38 57 06/15/17 08:00 58 06/15/17 08:00 98.4 56 18 137/71 96 Room Air 98.4 06/15/17 04:00 50 06/15/17 04:00 97.1 50 18 138/70 96 Room Air 97.1 06/15/17 00:00 97.8 71 18 152/76 95 Room Air 97.8 06/15/17 00:00 71 06/14/17 20:43 72 153/72 06/14/17 20:00 70 06/14/17 20:00 97.1 72 19 153/72 96 Room Air 97.1 06/14/17 16:00 65 06/14/17 16:00 97.3 66 20 137/78 97 Room Air 97.3 Intake and Output 06/14/17 06/15/17 19:00 07:00 Intake Total 500 ml Balance 500 ml Intake Oral 500 ml # Voids 3 1 General Appearance: WD/WN HEENT: normocephalic, atraumatic Respiratory/Chest: chest wall non-tender, lungs clear Breasts: no masses Cardiovascular: normal peripheral pulses, normal rate Abdomen: normal bowel sounds, no organomegaly Genitourinary: normal external genitalia Extremities: no cyanosis 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 Laboratory Tests 06/15/17 08:00: White Blood Count 6.1, Red Blood Count 4.13L, Hemoglobin 13.9, Hematocrit 37.7, Mean Corpuscular Volume 91, Mean Corpuscular Hemoglobin 33.7H, Mean Corpuscular Hemoglobin Concent 36.9H, Red Cell Distribution Width 11.3L, Platelet Count 167 , Mean Platelet Volume 7.8, Neutrophils (%) (Auto) 82.6H, Lymphocytes (%) (Auto ) 8.5L, Monocytes (%) (Auto) 8.1, Eosinophils (%) (Auto) 0.1, Basophils (%) ( Auto) 0.7, Sodium Level 133L, Potassium Level 4.1, Chloride Level 103, Carbon Dioxide Level 20L, Anion Gap 10, Blood Urea Nitrogen 11, Creatinine 0.4L, Estimat Glomerular Filtration Rate , Glucose Level 110H, Calcium Level 8.5, Troponin I 0.011, Pro-B-Type Natriuretic Peptide 1371H, Digoxin Level 0.4L Current Medications Medications (Trade) Dose Ordered Sig/Carlos Route PRN Reason Start Time Stop Time Status Last Admin Dose Admin Acetaminophen (Tylenol) 650 mg Q6H PRN ORAL Mild Pain/Temp > 100.5 06/12/17 19:00 07/12/17 18:59 Digoxin (Lanoxin) 0.125 mg DAILY ORAL 06/13/17 09:00 07/13/17 08:59 06/13/17 08:59 Lorazepam (Ativan) 1 mg Q6H PRN ORAL For Anxiety 06/14/17 15:15 06/21/17 15:14 Metoprolol Tartrate (Lopressor) 50 mg Q12HR ORAL 06/13/17 21:00 07/13/17 20:59 06/14/17 20:43 Ondansetron HCl (Zofran) 4 mg Q4HR PRN IVP Nausea & Vomiting 06/12/17 19:00 07/12/17 18:59 Rivaroxaban (Xarelto) 20 mg DAILY ORAL 06/13/17 09:00 07/13/17 08:59 06/15/17 08:48 Priya Hanna MD June 15, 2017 12:13
--- NOTE | 2017-06-15 14:46 | Cardiac Electrophysiology PN ---
Assessment/Plan Assessment/Plan 1. Paroxysmal atrial fibrillation with rapid ventricular response. Continue digoxin 0.125 mg daily and Lopressor 50 mg bid and Xarelto 20 mg daily. Already converted to sinus rhythm. Echocardiogram showed Ef 60% If stress test non ischemic, Will add Flecainide to her regimen 2. Inferolateral ST-T wave abnormalities. Stress test today pending. 3. HTN On Lopressor 50 bid DW RN and at bedside Subjective Subjective Remained in Sinus tania in high 50s. Had stress test today . Objective Last 24 Hour Vital Signs Date Time Temp Pulse Resp B/P (MAP) Pulse Ox O2 Delivery O2 Flow Rate FiO2 06/15/17 12:12 97.9 57 18 125/57 97 Room Air 97.9 06/15/17 12:00 57 06/15/17 08:39 57 138/70 06/15/17 08:38 57 06/15/17 08:00 58 06/15/17 08:00 98.4 56 18 137/71 96 Room Air 98.4 06/15/17 04:00 50 06/15/17 04:00 97.1 50 18 138/70 96 Room Air 97.1 06/15/17 00:00 97.8 71 18 152/76 95 Room Air 97.8 06/15/17 00:00 71 06/14/17 20:43 72 153/72 06/14/17 20:00 70 06/14/17 20:00 97.1 72 19 153/72 96 Room Air 97.1 06/14/17 16:00 65 06/14/17 16:00 97.3 66 20 137/78 97 Room Air 97.3 Intake and Output 06/14/17 06/15/17 19:00 07:00 Intake Total 500 ml Balance 500 ml Intake Oral 500 ml # Voids 3 1 Laboratory Tests Test 06/15/17 08:00 White Blood Count 6.1 K/UL (4.8-10.8) Red Blood Count 4.13 M/UL (4.20-5.40) L Hemoglobin 13.9 G/DL (12.0-16.0) Hematocrit 37.7 % (37.0-47.0) Mean Corpuscular Volume 91 FL (80-99) Mean Corpuscular Hemoglobin 33.7 PG (27.0-31.0) H Mean Corpuscular Hemoglobin Concent 36.9 G/DL (32.0-36.0) H Red Cell Distribution Width 11.3 % (11.6-14.8) L Platelet Count 167 K/UL (150-450) Mean Platelet Volume 7.8 FL (6.5-10.1) Neutrophils (%) (Auto) 82.6 % (45.0-75.0) H Lymphocytes (%) (Auto) 8.5 % (20.0-45.0) L Monocytes (%) (Auto) 8.1 % (1.0-10.0) Eosinophils (%) (Auto) 0.1 % (0.0-3.0) Basophils (%) (Auto) 0.7 % (0.0-2.0) Sodium Level 133 MMOL/L (136-145) L Potassium Level 4.1 MMOL/L (3.5-5.1) Chloride Level 103 MMOL/L (98-107) Carbon Dioxide Level 20 MMOL/L (21-32) L Anion Gap 10 mmol/L (5-15) Blood Urea Nitrogen 11 mg/dL (7-18) Creatinine 0.4 MG/DL (0.55-1.30) L Estimat Glomerular Filtration Rate mL/min (>60) Glucose Level 110 MG/DL (74-106) H Calcium Level 8.5 MG/DL (8.5-10.1) Troponin I 0.011 ng/mL (0.000-0.056) Pro-B-Type Natriuretic Peptide 1371 pg/mL (0-125) H Digoxin Level 0.4 NG/ML (0.9-2.0) L Objective HEAD AND NECK: No JVD or carotid bruits. LUNGS: Clear. CARDIOVASCULAR: Regular S1 and S2 with no gallop or murmur. ABDOMEN: Soft and nontender. EXTREMITIES: No pitting edema. John Nolasco MD June 15, 2017 14:46
--- NOTE | 2017-06-15 15:44 | Diagnostic Imaging Report ---
Indication: chest pain Technique: The study was conducted under the supervision of a labor relations supervisor. lexiscan (regadenoson) infusion over 10 seconds followed by intravenous administration of 30.7 mCi of technetium 99m Myoview was performed. Three plane SPECT imaging of the heart was then performed. A resting study was performed as part of the one-day protocol with 10.8 mCi of technetium 99m myoview injected intravenously at that time. Three plane SPECT imaging of the heart was obtained. Comparison: None Clinical data: Cardiology Department report per Dr. Arevalo 1. Clinical response: Nondiagnostic. Shoulder pain, neck pain, throat tightness, flushed, dyspnea. 2. Electrocardiographic response: Ischemic. [address] depression in inferolateral lead Findings: The myocardial perfusion scan demonstrates no definite fixed or reversible perfusion defects. Ejection fraction is estimated at 86% which is very likely overestimated. No wall motion abnormality seen. IMPRESSION: No scintigraphic evidence for myocardial ischemia. Please of for to the cardiology clinical notes and impression.
--- NOTE | 2017-06-15 16:33 | Internal Med Progress Note ---
Subjective Date of Service: June 15, 2017 Physician Name Jerald Vela Attending Physician Jamie Donahue MD Current Medications Medications (Trade) Dose Ordered Sig/Carlos Route PRN Reason Start Time Stop Time Status Last Admin Dose Admin Acetaminophen (Tylenol) 650 mg Q6H PRN ORAL Mild Pain/Temp > 100.5 06/12/17 19:00 07/12/17 18:59 Digoxin (Lanoxin) 0.125 mg DAILY ORAL 06/13/17 09:00 07/13/17 08:59 06/13/17 08:59 Lorazepam (Ativan) 1 mg Q6H PRN ORAL For Anxiety 06/14/17 15:15 06/21/17 15:14 Metoprolol Tartrate (Lopressor) 50 mg Q12HR ORAL 06/13/17 21:00 07/13/17 20:59 06/14/17 20:43 Ondansetron HCl (Zofran) 4 mg Q4HR PRN IVP Nausea & Vomiting 06/12/17 19:00 07/12/17 18:59 Rivaroxaban (Xarelto) 20 mg DAILY ORAL 06/13/17 09:00 07/13/17 08:59 06/15/17 08:48 Allergies: Coded Allergies: ACETAMINOPHEN (Unverified Adverse Reaction, Mild, 09/16/16) HYDROCODONE (Unverified Adverse Reaction, Mild, 09/16/16) PROMETHAZINE (Unverified Adverse Reaction, Mild, 09/16/16) ROS Limited/Unobtainable: No Constitutional: Reports: no symptoms HEENT: Reports: no symptoms Cardiovascular: Reports: no symptoms Respiratory: Reports: no symptoms Gastrointestinal/Abdominal: Reports: no symptoms Genitourinary: Reports: no symptoms Neurologic/Psychiatric: Reports: no symptoms Subjective 72 YO F admitted with atrial fibrillation with rapid ventricular rate. Cover for Int Med - Dr Donahue. Await cardiac stress test result. Objective Last Vital Signs Date Time Temp Pulse Resp B/P (MAP) Pulse Ox O2 Delivery O2 Flow Rate FiO2 06/15/17 12:12 97.9 57 18 125/57 97 Room Air 97.9 Laboratory Tests Test 06/15/17 08:00 White Blood Count 6.1 K/UL (4.8-10.8) Red Blood Count 4.13 M/UL (4.20-5.40) L Hemoglobin 13.9 G/DL (12.0-16.0) Hematocrit 37.7 % (37.0-47.0) Mean Corpuscular Volume 91 FL (80-99) Mean Corpuscular Hemoglobin 33.7 PG (27.0-31.0) H Mean Corpuscular Hemoglobin Concent 36.9 G/DL (32.0-36.0) H Red Cell Distribution Width 11.3 % (11.6-14.8) L Platelet Count 167 K/UL (150-450) Mean Platelet Volume 7.8 FL (6.5-10.1) Neutrophils (%) (Auto) 82.6 % (45.0-75.0) H Lymphocytes (%) (Auto) 8.5 % (20.0-45.0) L Monocytes (%) (Auto) 8.1 % (1.0-10.0) Eosinophils (%) (Auto) 0.1 % (0.0-3.0) Basophils (%) (Auto) 0.7 % (0.0-2.0) Sodium Level 133 MMOL/L (136-145) L Potassium Level 4.1 MMOL/L (3.5-5.1) Chloride Level 103 MMOL/L (98-107) Carbon Dioxide Level 20 MMOL/L (21-32) L Anion Gap 10 mmol/L (5-15) Blood Urea Nitrogen 11 mg/dL (7-18) Creatinine 0.4 MG/DL (0.55-1.30) L Estimat Glomerular Filtration Rate mL/min (>60) Glucose Level 110 MG/DL (74-106) H Calcium Level 8.5 MG/DL (8.5-10.1) Troponin I 0.011 ng/mL (0.000-0.056) Pro-B-Type Natriuretic Peptide 1371 pg/mL (0-125) H Digoxin Level 0.4 NG/ML (0.9-2.0) L Intake and Output 06/14/17 06/15/17 19:00 07:00 Intake Total 500 ml Balance 500 ml Intake Oral 500 ml # Voids 3 1 Objective General Appearance: WD/WN, no apparent distress, alert EENT: PERRL/EOMI, normal ENT inspection, TMs normal Neck: non-tender, normal alignment, supple, normal inspection Cardiovascular: normal peripheral pulses, normal rate, regular rhythm, no gallop/murmur, no JVD Respiratory/Chest: chest wall non-tender, lungs clear, normal breath sounds, no respiratory distress, no accessory muscle use Abdomen: normal bowel sounds, non tender, soft, no organomegaly, no mass Extremities: normal range of motion, non-tender Neurologic: machine sander II-XII grossly normal, no motor/sensory deficits Skin: normal pigmentation, warm/dry Assessment/Plan Problem List: (1) Atrial fibrillation with rapid ventricular response Assessment & Plan: Resolved. On digoxin per cardiology-see note. Await cardiac stress test result. (2) Hypertension Assessment & Plan: Continue metoprolol per cardiology (3) Thyroid nodule Assessment & Plan: Normal TSH; Previous biopsy=benign. (4) Migraine (5) Palpitations Status: stable JERALD VELA June 15, 2017 16:33
[2017-06-15 16:36] VITALS: BP 134/66
[2017-06-15 20:00] VITALS: BP 142/58
--- NOTE | 2017-06-15 22:46 | General Progress Note ---
Assessment/Plan Status: stable, progressing Subjective Date patient seen: June 15, 2017 Neurologic/Psychiatric: Reports: anxiety, depressed, emotional problems Allergies: Coded Allergies: ACETAMINOPHEN (Unverified Adverse Reaction, Mild, 09/16/16) HYDROCODONE (Unverified Adverse Reaction, Mild, 09/16/16) PROMETHAZINE (Unverified Adverse Reaction, Mild, 09/16/16) Objective Last 24 Hour Vital Signs Date Time Temp Pulse Resp B/P (MAP) Pulse Ox O2 Delivery O2 Flow Rate FiO2 06/15/17 20:56 60 130/70 06/15/17 20:00 98.2 58 18 142/58 98 Room Air 98.2 06/15/17 19:49 61 06/15/17 16:36 98.2 61 18 134/66 96 Room Air 98.2 06/15/17 16:00 58 06/15/17 12:12 97.9 57 18 125/57 97 Room Air 97.9 06/15/17 12:00 57 06/15/17 08:39 57 138/70 06/15/17 08:38 57 06/15/17 08:00 58 06/15/17 08:00 98.4 56 18 137/71 96 Room Air 98.4 06/15/17 04:00 50 06/15/17 04:00 97.1 50 18 138/70 96 Room Air 97.1 06/15/17 00:00 97.8 71 18 152/76 95 Room Air 97.8 06/15/17 00:00 71 Intake and Output 06/14/17 06/15/17 19:00 07:00 Intake Total 500 ml Balance 500 ml Intake Oral 500 ml # Voids 3 1 Laboratory Tests 06/15/17 08:00: White Blood Count 6.1, Red Blood Count 4.13L, Hemoglobin 13.9, Hematocrit 37.7, Mean Corpuscular Volume 91, Mean Corpuscular Hemoglobin 33.7H, Mean Corpuscular Hemoglobin Concent 36.9H, Red Cell Distribution Width 11.3L, Platelet Count 167 , Mean Platelet Volume 7.8, Neutrophils (%) (Auto) 82.6H, Lymphocytes (%) (Auto ) 8.5L, Monocytes (%) (Auto) 8.1, Eosinophils (%) (Auto) 0.1, Basophils (%) ( Auto) 0.7, Sodium Level 133L, Potassium Level 4.1, Chloride Level 103, Carbon Dioxide Level 20L, Anion Gap 10, Blood Urea Nitrogen 11, Creatinine 0.4L, Estimat Glomerular Filtration Rate , Glucose Level 110H, Calcium Level 8.5, Troponin I 0.011, Pro-B-Type Natriuretic Peptide 1371H, Digoxin Level 0.4L Height (Feet): 5 Height (Inches): 5.00 Weight (Pounds): 95 General Appearance: WD/WN, no apparent distress, alert Neurologic: oriented x 3, responsive, depressed affect Nubia Walsh M.D. June 15, 2017 22:46
[2017-06-16] VITALS: BP 137/70
[2017-06-16 04:00] VITALS: BP 120/66
[2017-06-16 08:00] VITALS: BP 99/54
[2017-06-16] MEDS: Digoxin 0.125mg tab ORAL SCH (09:00)
[2017-06-16] MEDS: Metoprolol Tartrate 50mg tab ORAL SCH (09:00)
[2017-06-16] MEDS: Xarelto 10mg tab ORAL SCH (09:44)
--- NOTE | 2017-06-16 11:45 | Internal Med Progress Note ---
Subjective Date of Service: June 16, 2017 Physician Name Aditi Vela Attending Physician Jamie Donahue MD Current Medications Medications (Trade) Dose Ordered Sig/Carlos Route PRN Reason Start Time Stop Time Status Last Admin Dose Admin Acetaminophen (Tylenol) 650 mg Q6H PRN ORAL Mild Pain/Temp > 100.5 06/12/17 19:00 07/12/17 18:59 Digoxin (Lanoxin) 0.125 mg DAILY ORAL 06/13/17 09:00 07/13/17 08:59 06/13/17 08:59 Lorazepam (Ativan) 1 mg Q6H PRN ORAL For Anxiety 06/14/17 15:15 06/21/17 15:14 Metoprolol Tartrate (Lopressor) 50 mg Q12HR ORAL 06/13/17 21:00 07/13/17 20:59 06/15/17 20:56 Ondansetron HCl (Zofran) 4 mg Q4HR PRN IVP Nausea & Vomiting 06/12/17 19:00 07/12/17 18:59 Rivaroxaban (Xarelto) 20 mg DAILY ORAL 06/13/17 09:00 07/13/17 08:59 06/16/17 09:44 Allergies: Coded Allergies: ACETAMINOPHEN (Unverified Adverse Reaction, Mild, 09/16/16) HYDROCODONE (Unverified Adverse Reaction, Mild, 09/16/16) PROMETHAZINE (Unverified Adverse Reaction, Mild, 09/16/16) ROS Limited/Unobtainable: No Constitutional: Reports: no symptoms HEENT: Reports: no symptoms Cardiovascular: Reports: no symptoms Respiratory: Reports: no symptoms Gastrointestinal/Abdominal: Reports: no symptoms Genitourinary: Reports: no symptoms Neurologic/Psychiatric: Reports: no symptoms Subjective 72 YO F admitted with atrial fibrillation with rapid ventricular rate. Cover for Int Bill - Dr Donahue. Sinus bradycardia. Objective Last Vital Signs Date Time Temp Pulse Resp B/P (MAP) Pulse Ox O2 Delivery O2 Flow Rate FiO2 06/16/17 09:00 59 98/54 06/16/17 08:00 97.6 21 98 Room Air 97.6 Intake and Output 06/15/17 06/16/17 19:00 07:00 Intake Total 280 ml Balance 280 ml Intake Oral 280 ml # Voids 2 1 Objective General Appearance: WD/WN, no apparent distress, alert EENT: PERRL/EOMI, normal ENT inspection, TMs normal Neck: non-tender, normal alignment, supple, normal inspection Cardiovascular: normal peripheral pulses, normal rate, regular rhythm, no gallop/murmur, no JVD Respiratory/Chest: chest wall non-tender, lungs clear, normal breath sounds, no respiratory distress, no accessory muscle use Abdomen: normal bowel sounds, non tender, soft, no organomegaly, no mass Extremities: normal range of motion, non-tender Neurologic: home maker II-XII grossly normal, no motor/sensory deficits Skin: normal pigmentation, warm/dry Assessment/Plan Problem List: (1) Atrial fibrillation with rapid ventricular response Assessment & Plan: Resolved. On digoxin per cardiology-see note. Cardiac stress test= non ischemic. ?add flecanide? (2) Hypertension Assessment & Plan: Continue metoprolol per cardiology (3) Thyroid nodule Assessment & Plan: Normal TSH; Previous biopsy=benign. (4) Migraine (5) Palpitations Status: stable Assessment/Plan Discharge home today ADITI VELA June 16, 2017 11:45
[2017-06-16 12:00] VITALS: BP 113/62
--- NOTE | 2017-06-16 12:11 | General Progress Note ---
Assessment/Plan Status: stable, progressing Assessment/Plan 1. Anxiety disorder. 2. Cognitive impairment. PLAN: We will continue current medication. Provide the patient with supportive therapy and reality orientation. Subjective Date patient seen: June 16, 2017 Neurologic/Psychiatric: Reports: anxiety, emotional problems Allergies: Coded Allergies: ACETAMINOPHEN (Unverified Adverse Reaction, Mild, 09/16/16) HYDROCODONE (Unverified Adverse Reaction, Mild, 09/16/16) PROMETHAZINE (Unverified Adverse Reaction, Mild, 09/16/16) Objective Last 24 Hour Vital Signs Date Time Temp Pulse Resp B/P (MAP) Pulse Ox O2 Delivery O2 Flow Rate FiO2 06/16/17 09:00 59 98/54 06/16/17 09:00 59 06/16/17 08:00 97.6 57 21 99/54 98 Room Air 97.6 06/16/17 08:00 60 06/16/17 04:00 97.6 57 18 120/66 97 Room Air 97.6 06/16/17 03:41 57 06/16/17 00:00 97.1 64 18 137/70 95 Room Air 97.1 06/15/17 23:51 54 06/15/17 20:56 60 130/70 06/15/17 20:00 98.2 58 18 142/58 98 Room Air 98.2 06/15/17 19:49 61 06/15/17 16:36 98.2 61 18 134/66 96 Room Air 98.2 06/15/17 16:00 58 06/15/17 12:12 97.9 57 18 125/57 97 Room Air 97.9 Intake and Output 06/15/17 06/16/17 19:00 07:00 Intake Total 280 ml Balance 280 ml Intake Oral 280 ml # Voids 2 1 Height (Feet): 5 Height (Inches): 5.00 Weight (Pounds): 95 General Appearance: WD/WN, no apparent distress, alert Neurologic: oriented x 3, responsive, normal mood/affect Nubia Walsh M.D. June 16, 2017 12:11
--- NOTE | 2017-06-16 12:11 | Pulmonology Progress Note ---
Assessment/Plan Problems: (1) Atrial fibrillation with rapid ventricular response (2) Thyroid nodule (3) Migraine Assessment/Plan no new complains stress test done troponin all negative echo reviewed, EF 60% symptomatic treatment f/u cardiology recommendations dc planning Subjective ROS Limited/Unobtainable: No Constitutional: Reports: no symptoms HEENT: Repors: no symptoms Respiratory: Reports: no symptoms Allergies: Coded Allergies: ACETAMINOPHEN (Unverified Adverse Reaction, Mild, 09/16/16) HYDROCODONE (Unverified Adverse Reaction, Mild, 09/16/16) PROMETHAZINE (Unverified Adverse Reaction, Mild, 09/16/16) Objective Last 24 Hour Vital Signs Date Time Temp Pulse Resp B/P (MAP) Pulse Ox O2 Delivery O2 Flow Rate FiO2 06/16/17 09:00 59 98/54 06/16/17 09:00 59 06/16/17 08:00 97.6 57 21 99/54 98 Room Air 97.6 06/16/17 08:00 60 06/16/17 04:00 97.6 57 18 120/66 97 Room Air 97.6 06/16/17 03:41 57 06/16/17 00:00 97.1 64 18 137/70 95 Room Air 97.1 06/15/17 23:51 54 06/15/17 20:56 60 130/70 06/15/17 20:00 98.2 58 18 142/58 98 Room Air 98.2 06/15/17 19:49 61 06/15/17 16:36 98.2 61 18 134/66 96 Room Air 98.2 06/15/17 16:00 58 06/15/17 12:12 97.9 57 18 125/57 97 Room Air 97.9 Intake and Output 06/15/17 06/16/17 19:00 07:00 Intake Total 280 ml Balance 280 ml Intake Oral 280 ml # Voids 2 1 General Appearance: WD/WN HEENT: normocephalic Respiratory/Chest: chest wall non-tender, lungs clear Breasts: no masses Cardiovascular: normal peripheral pulses Abdomen: normal bowel sounds, soft, non tender, no organomegaly Genitourinary: normal external genitalia Extremities: no cyanosis Neurologic/Psychiatric: cap coverer II-XII grossly normal Current Medications Medications (Trade) Dose Ordered Sig/Carlos Route PRN Reason Start Time Stop Time Status Last Admin Dose Admin Acetaminophen (Tylenol) 650 mg Q6H PRN ORAL Mild Pain/Temp > 100.5 06/12/17 19:00 07/12/17 18:59 Digoxin (Lanoxin) 0.125 mg DAILY ORAL 06/13/17 09:00 07/13/17 08:59 06/13/17 08:59 Lorazepam (Ativan) 1 mg Q6H PRN ORAL For Anxiety 06/14/17 15:15 06/21/17 15:14 Metoprolol Tartrate (Lopressor) 50 mg Q12HR ORAL 06/13/17 21:00 07/13/17 20:59 06/15/17 20:56 Ondansetron HCl (Zofran) 4 mg Q4HR PRN IVP Nausea & Vomiting 06/12/17 19:00 07/12/17 18:59 Rivaroxaban (Xarelto) 20 mg DAILY ORAL 06/13/17 09:00 07/13/17 08:59 06/16/17 09:44 Priya Hanna MD June 16, 2017 12:11
--- NOTE | 2017-06-16 12:22 | Cardiac Electrophysiology PN ---
Assessment/Plan Status Narrative No scintigraphic evidence for myocardial ischemia. Assessment/Plan 1. Paroxysmal atrial fibrillation with rapid ventricular response. DC digoxin. Continue Lopressor 50 mg bid and Xarelto 20 mg daily. Already converted to sinus rhythm. Echocardiogram showed Ef 60% Stress test non ischemic. Will add Flecainide bid 2. Inferolateral ST-T wave abnormalities. Stress test was nonischemic 3. HTN On Lopressor [address] Roper Subjective Subjective Remained in Sinus tania in high 50s.Stress test from yesterday was non ischemic. Objective Last 24 Hour Vital Signs Date Time Temp Pulse Resp B/P (MAP) Pulse Ox O2 Delivery O2 Flow Rate FiO2 06/16/17 09:00 59 98/54 06/16/17 09:00 59 06/16/17 08:00 97.6 57 21 99/54 98 Room Air 97.6 06/16/17 08:00 60 06/16/17 04:00 97.6 57 18 120/66 97 Room Air 97.6 06/16/17 03:41 57 06/16/17 00:00 97.1 64 18 137/70 95 Room Air 97.1 06/15/17 23:51 54 06/15/17 20:56 60 130/70 06/15/17 20:00 98.2 58 18 142/58 98 Room Air 98.2 06/15/17 19:49 61 06/15/17 16:36 98.2 61 18 134/66 96 Room Air 98.2 06/15/17 16:00 58 Intake and Output 06/15/17 06/16/17 19:00 07:00 Intake Total 280 ml Balance 280 ml Intake Oral 280 ml # Voids 2 1 Objective HEAD AND NECK: No JVD or carotid bruits. LUNGS: Clear. CARDIOVASCULAR: Regular S1 and S2 with no gallop or murmur. ABDOMEN: Soft and nontender. EXTREMITIES: No pitting edema. John Nolasco MD June 16, 2017 12:22
[2017-06-16] MEDS ORDERED: FLECAINIDE ACET50 M1 PO (14:14)
--- NOTE | 2017-06-17 19:01 | Discharge Summary ---
Discharge Summary Hospital Course Date of Admission Jun 12, 2017 at 15:55 Date of Discharge June 16, 2017 at 17:00 Admitting Diagnosis HPI Marycruz Macias is a 72 year old female who was admitted on Jun 12, 2017 at 15: 55 for Palpitations Hospital Course [id number] Discharge Discharge Disposition Patient was discharged to Home (01) Fiona Hancock NP June 17, 2017 19:01
--- NOTE | 2017-06-17 21:45 | Discharge Summary 2 SIG ---
DATE OF ADMISSION: 06/12/2017 DATE OF DISCHARGE: 06/16/2017 ATTENDING PHYSICIAN: Jamie Donahue M.D. CONSULTANTS: 1. Priya Hanna M.D. 2. John Nolasco M.D. 3. Nubia Walsh M.D. BRIEF HOSPITAL COURSE: The patient is a 72-year-old female with past medical history significant for atrial fibrillation as well as thyroid nodule and hypertension, presented initially to [facility] with complaints of palpitation. She was recently admitted to [facility] [address] on 09/16/2016 through 09/18/2016 with same presentation. Subsequently, she was noted to have atrial fibrillation with rapid ventricular rate of 130. The patient was not taking digoxin anymore or has been taking it on and off. The patient was transferred to [place] for further evaluation. Initial troponin was 0.053. TSH was normal. She had an echocardiogram on 10/12/2016 that showed ejection fraction of 55% with no evidence of ventricular hypertrophy. She was admitted to telemetry and underwent cardiac evaluation. The patient has been on Xarelto. She received IV Cardizem and p.o. Cardizem. She was continued on digoxin 0.125 mg daily and Lopressor 50 mg t.i.d. She was started on amiodarone 200 mg daily to decrease frequency of atrial fibrillation. She converted to sinus rhythm. Echocardiogram done this admission showed ejection fraction of 60%. She underwent myocardial perfusion scan. Results were negative for myocardial ischemia. She was taken off digoxin. Continue with Lopressor and Xarelto. She underwent psychiatric evaluation. She was diagnosed with anxiety disorder and cognitive impairment. She was given supportive therapy and reality orientation. She was placed on p.r.n. Ativan. Stress test, nonischemic. Flecainide was added. She was then cleared for discharge home. FINAL DIAGNOSES: 1. Paroxysmal atrial fibrillation with rapid ventricular response. 2. Inferolateral ST to T-wave abnormality. 3. Hypertension. 4. Migraine. 5. Thyroid nodule with normal TSH. Previous biopsy was benign. DISPOSITION: The patient was discharged home. DISCHARGE MEDICATIONS: Refer to medication list. DISCHARGE INSTRUCTIONS: Follow up with Dr. Donahue in a week. Priya Hanna M.D. I have been assigned to dictate discharge summary on this account and I was not involved in the patient's management. Fiona Hancock N.P. DR: KEYONNA JOB#: [id number] CC: GOLDEN
== END 2017-06-16 17:00 | disposition home or self-care (01) | DRG 310 ==
LOC: 2E 15:55
DX: I48.0 Paroxysmal atrial fibrillation (principal); E04.1 Nontoxic single thyroid nodule; G43.909 Migraine, unspecified, not intractable, without status migrainosus; I10 Essential (primary) hypertension; F41.9 Anxiety disorder, unspecified; Z88.6 Allergy status to analgesic agent; Z88.8 Allergy status to other drugs, medicaments and biological substances; Z79.01 Long term (current) use of anticoagulants; E87.6 Hypokalemia; R94.31 Abnormal electrocardiogram [ECG] [EKG]
CPT/HCPCS: 36415; 71045; 78452; 80048; 80053; 80162; 83735; 83880; 84100; 84439; 84443; 84484; 85007; 85025; 93017; 93306; J2405; J2785